=== PATIENT | male | born 1940 | race Caucasian/White ===

== ENCOUNTER → 2016-11-03 | Outpatient (CLI) | payer MEDICARE, OTHER ==
[~2016-11-03] MED LIST: ALPR0.5T3 PO; AMLO10TA2 PO; FISH100020 PO; FURO20TA PO; GLIM2TAB PO; HYDR-3533 PO; LACTCAP8 PO; LISI40TA PO; LOVA40TA PO; MAGN400T2 PO; MAPA500T13 PO; METF500T PO; METO25TA3 PO; NIAC500T5 PO; TAMS0.4C4 PO; VENL75CA44 PO; VITACAP7 PO
[2016-11-03 10:00] LABS: BLOOD, URINE NEG (NEG); GLUCOSE,URINE NEG (NEG); KETONE, URINE NEG (NEG); NITRITE,URINE NEG (NEG); URINE COLOR LIGHT-YELLOW (YELLW/STRAW)
[2016-11-03 10:03] LABS: APTT (PATIENT) 28.5 SEC (24.3-30.1); PROTHROMBIN TIME - PATIENT 10.6 SEC (9.8-11.6)
[2016-11-03 10:05] LABS: COMMENT (UR) CULT NOT INDICATED; CULTURE IF INDICATED CULT NOT INDICATED
[2016-11-03 10:10] LABS: ALKALINE PHOSPHATASE 59 U/L (45-117); TOTAL BILIRUBIN ADULT 0.3 MG/DL (0.2-1.0)
[2016-11-03 10:17] LABS: ALT (GPT) 30 U/L (12-78); ANION GAP 5 MEQ/L (5-15); AST (GOT) 30 U/L (15-37); BICARBONATE 24.6 MEQ/L (21.0-32.0); BLOOD UREA NITROGEN 30 MG/DL (7-18); CHLORIDE 110 MEQ/L (98-107); GLOMERULAR FILTRATION RATE 42 ML/MIN (>89); GLUCOSE,FASTING 124 MG/DL (74-99); SODIUM (NA) 140 MEQ/L (136-145)
[2016-11-03 10:25] LABS: POTASSIUM 5.2 MEQ/L (3.5-5.1)
--- NOTE | 2016-11-03 11:12 | RADRPT ---
EXAM DATE/TIME: 11/03/2016 10:03 [facility] COMPARISON: No previous studies available for comparison. INDICATIONS : Evaluate for pneumonia, pneumothorax or communicable disease. Pre op for back surgery 11-09-16. MEDICAL HISTORY : None. SURGICAL HISTORY : CABG. aortic valve replacement. ENCOUNTER: Initial ACUITY: 1 day PAIN SCORE: 0/10 LOCATION: Bilateral chest FINDINGS: PA and lateral views of the chest demonstrate the lungs to be symmetrically aerated without evidence of mass, infiltrate or effusion. Prosthetic aortic valve. Median sternotomy wires. The cardiomediast inal contours are unremarkable. Osseous structures are intact. CONCLUSION: No acute disease. Cosmo Omalley Jr., MD on November 03, 2016 at 10:59 Board Certified Radiologist. This report was verified electronically.
--- NOTE | 2016-11-04 12:14 | EKG ---
Date Performed: 11/03/2016 Time Performed: 09:01:54 PTAGE: 76 years EKG: Sinus rhythm RIGHT BUNDLE BRANCH BLOCK INFERIOR MYOCARDIAL INFARCTION, OF INDETERMINATE AGE There has been loss o f R wave in III and aVF from the prior tracing. Clinical correlation needed. ABNORMAL ECG PREVIOUS TRACING : 11/12/2011 07.15 DOCTOR: Abdon Brown Interpretating Date/Time 11/04/2016 12:13:59
== END ==
LOC: CPRE 08:28
PROVIDERS: ATTEND Neurological Surgery
DX: Z01.810 Encounter for preprocedural cardiovascular examination (principal); Z01.812 Encounter for preprocedural laboratory examination; M43.10 Spondylolisthesis, site unspecified; I45.10 Unspecified right bundle-branch block
CPT/HCPCS: 36415; 71020; 80053; 81001; 85610; 85730; 93005

== ENCOUNTER 2016-11-09 08:30 | Inpatient (IN) | payer MEDICARE, OTHER ==
[~2016-11-09] VITALS: Ht 165.1 cm; Wt 96.5 kg
[~2016-11-09 08:30] MED LIST changes: -HYDR-3533 PO
[2016-11-09] MEDS ORDERED: LACTATED RINGER'S 1000 ML INJ 1,000 ML IV ONE (10:46)
[2016-11-09] MEDS ORDERED: SODIUM CHLOR 0.9% 250 ML INJ 250 ML IV ONE (10:46)
[2016-11-09] MEDS ORDERED: PROPOFOL 200 MG/20 ML AMP IV ONE (10:46)
[2016-11-09] MEDS ORDERED: ONDANSETRON HCL 4 MG/2 ML VIAL IV PUSH ONE (10:46)
[2016-11-09] MEDS ORDERED: PHENYLEPHRINE HCL 10 MG/ML VIAL IV ONE (10:46)
[2016-11-09] MEDS ORDERED: ePHEDrine/NS 25 MG/5 ML SYR IV ONE (10:46)
[2016-11-09] MEDS ORDERED: PHENYLEPH/NS 1000 MCG/10 ML SYR IV ONE (10:46)
[2016-11-09] MEDS ORDERED: LACTATED RINGER'S 1000 ML IV PRN (11:45)
[2016-11-09] MEDS ORDERED: INSULIN HUMAN REGULAR 1,000 UNITS/10 ML VIAL SQ PRN (11:45)
[2016-11-09] MEDS ORDERED: SODIUM CHLORID 0.9% 500 ML IV PRN (11:45)
[2016-11-09] MEDS ORDERED: CHLORHEXIDINE GLUCONATE 2 % 1 PACK (2 CLOTHS) TOPICAL PRN (11:45)
[2016-11-09] MEDS ORDERED: METOPROLOL TARTRATE 25 MG TAB PO PRN (11:45)
[2016-11-09] MEDS ORDERED: POVIDONE IODINE 5% (ANTISEPSIS KIT) 4 APPLICATIONS EACH NARE PRN (11:45)
[2016-11-09] MEDS ORDERED: VANCOMYCIN HCL 1000 MG ON-CALL/NS 250 ML IV SCH ×2 (12:00)
[2016-11-09 12:20] LABS: AUTOMATED NEUTROPHIL # 3.9 TH/MM3 (1.8-7.7); BASOPHIL % 0.3 % (0.0-2.0); EOSINOPHIL # 0.1 TH/MM3 (0-0.4); EOSINOPHIL % 1.8 % (0.0-4.0); HEMATOCRIT 37.1 % (39.0-51.0); HEMO FLAGS DIFF FINAL; LYMPHOCYTE # 1.5 TH/MM3 (1.0-4.8); MEAN CELL VOLUME 97.9 FL (80.0-100.0); MEAN CORPUSCULAR HEMOGLOBIN 32.2 PG (27.0-34.0); MEAN CORPUSCULAR HGB CONC 32.8 % (32.0-36.0); MONO % 10.8 % (0.0-8.0); NEUT % 63.1 % (16.0-70.0); PLATELET COUNT 183 TH/MM3 (150-450); RED BLOOD COUNT 3.79 MIL/MM3 (4.50-5.90); RED CELL DISTRIBUTION WIDTH 14.8 % (11.6-17.2); WHITE BLOOD COUNT 6.2 TH/MM3 (4.0-11.0)
[2016-11-09] MEDS ORDERED: BUPIVACAINE/EPINEPHRINE 0.5% 50 ML VIAL ONE (13:54)
[2016-11-09] MEDS ORDERED: VANCOMYCIN HCL 1000 MG VIAL ONE (13:54)
[2016-11-09] MEDS ORDERED: HEPARIN SODIUM - SQ 10,000 UNITS/ML VIAL ONE (13:55)
[2016-11-09] MEDS ORDERED: THROMBIN (TOPICAL) 5,000 UNIT VIAL ONE (13:56)
[2016-11-09] MEDS ORDERED: ceFAZolin INJ 1,000 MG VIAL ONE (13:56)
[2016-11-09] MEDS ORDERED: GENTAMICIN SULFATE 80 MG/2 ML VIAL ONE (13:56)
[2016-11-09] MEDS ORDERED: GELFOAM SIZE 100 ONE (13:56)
[2016-11-09] MEDS ORDERED: SODIUM CHLOR 0.9% 250 ML INJ 0 ML ONE (13:57)
[2016-11-09] MEDS ORDERED: ARTIFICIAL TEARS OPTH OINT 3.5 APPLIC/3.5 GM TUBO ONE (14:26)
[2016-11-09] MEDS ORDERED: ACETAMINOPHEN 1000 MG/100 ML 100 ML IV ONE (14:26)
[2016-11-09] MEDS ORDERED: MIDAZOLAM HCL 2 MG/2 ML VIAL ONE (14:26)
[2016-11-09] MEDS ORDERED: ceFAZolin 2 GM PREMIX 50 ML ONE (16:50)
[2016-11-09 18:41] LABS: BLOOD GAS BASE EXCESS -2.5 mmol/L (-2-2); BLOOD GAS HCO3 22 mmol/L (22-26); BLOOD GAS METHEMOGLOBIN 1.4 % (0-2); BLOOD GAS O2 HGB SATURATION 96 % (90-100); BLOOD GAS OXYGEN CONTENT 14.5 Vol % (12.0-20.0); BLOOD GAS PCO2 38 mmHg (38-42); BLOOD GAS PO2 146 mmHg (61-120); BLOOD GAS TOTAL HGB 10.6 G/DL (12.0-16.0); CRITICAL VALUE NO; TEMP CORR TO 98.6
[2016-11-09 18:42] LABS: DRAW SITE OR ABG; FIO2 50 %; STAT YES
[2016-11-09] MEDS ORDERED: ceFAZolin INJ 1,000 MG VIAL IV ONE (19:37)
[2016-11-09] MEDS: NS + KCL 20 MEQ INJ 1,000 ML IV SCH (19:54)
[2016-11-09] MEDS ORDERED: MORPHINE SULFATE 4 MG/ML INJ IV PUSH PRN ×2 (20:00)
[2016-11-09] MEDS ORDERED: ACETAMINOPHEN 325 MG TAB PO PRN (20:00)
[2016-11-09] MEDS ORDERED: diphenhydrAMINE HCL 50 MG/ML VIAL IV PRN (20:00)
[2016-11-09] MEDS ORDERED: SODIUM CHLORIDE 0.9% FLUSH 5 ML FLUSH IVF PRN (20:00)
[2016-11-09] MEDS ORDERED: NALOXONE HCL 0.4 MG/ML AMP IV PRN (20:00)
[2016-11-09] MEDS ORDERED: ceFAZolin 1,000 MG/NS 100 ML IV SCH ×4 (20:00)
--- NOTE | 2016-11-09 20:00 | PD.OP ---
Operative Report Date of Surgery: Nov 09, 2016 Preoperative Diagnosis: L4-5 spondylolisthesis Postoperative Diagnosis: L4-5 spondylolisthesis Procedure: L4-L5 laminectomy, interbody arthrodhesis using PEEK cage and autologous bone graft, L4-L5 instrumental fixation using transpedicular screws and rods, L4-L5 posterolateral fusion using autologous bone graft and demineralized bone matrix. Microsurgical dissection Anesthesia: general Surgeon: Musa Solis [facility] Lead(s): konrad gonzalez Operation and Findings: INDICATIONS FOR THE SURGICAL PROCEDURE Mr Mejia is a 76 year-old male with history of a prior L4-5 laminectomy who presented with intractable mechanical back pain and citlaly evidence of lower extremity radiculopathy. He developed spondylolisthesis. The patient has failed maximum nonsurgical management including multiple modalities of conservative treatment as well as pain management interventions by an interventional pain specialist. A surgical decompression and arthrodhesis were indicated as a last resort. The [id number] details of the procedure, indications, alternatives, risks and potential complications were fully discussed with the patient. The patient fully understood. All the questions were answered. No guarantees were given. The patient voiced requesting the procedure and provided informed consents. The patient was offered the alternative of delaying the procedure and continuing with nonsurgical management. DETAILS OF THE SURGICAL PROCEDURE Prior to the procedure, the surgical incision was marked in the preoperative surgical holding room, and the procedure, risks, and potential complications revisited with the patient. Placement of electrodes for intraoperative neurophysiological monitoring was completed. The patient was taken to the operative room, and following induction of general anesthesia, endotracheal intubation was performed. A Garcia catheter, bilateral DAMASO hose and sequential compression devices were placed and kept throughout the procedure. The patient was positioned prone, over a Doyle table over a bolsters. All pressure in the preoperative surgical holding room points were carefully padded with eggcrate and gel mattress. The eyes were tapped shut after ointment was applied by the anesthesiologist to prevent corneal abrasion. A Blu hugger was placed over the expossed lower body to maintain control of the core body temperature. The electrophysiological team placed the needles and electrodes in their proper location and baseline SSEP's and EMG potentials were registered. The entrance to each pedicles was marked using a C arm. The lumbar region was prepped and draped in the usual sterile fashion. The surgical procedure was performed in several steps as follow: SURGICAL APPROACH Once the patient was positioned, a localizing cross-table lateral x-ray was performed with a C-arm. Two paramedian small incisions were outlined on the skin approximately 3cm from the midline. The skin incisions were made with a # 10 blade. Small bleeders were controlled with the cautery. The dissection was then carried out into deper planes and through the thoracolumbar fascia with a Bovie. The intermuscular septum was identified and the myscles were blunted dissected along the septum. The facets and transverse process of L4 and L5 were exposed and the proper anatomical landmarks were identidied. A microsurgical self-retaining retractor was placed on the incision, and a localizing lateralizing cross-table x-ray was performed with an instrument underneath a lamina of the lumbar spine. INSTRUMENTAL FIXATION At this point in the procedure, placement of bilateral transpedicular screws was necessary for stabilization of the spine. Initially, the entry point for the screw was selected anatomically at the junction of the facet, with the transverse process, and the pars interarticularis at L4 and L5. This was started with a Giamshetti needle followed by the use of a garcia wire. A tap was used to create the threads for the screws. Finally bilateral transpedicular screws were carefully placed bilaterally at L4, and L5 under fluoroscopic visualization. An appropriate purchase was achieved with all screws. The position of each screw was assessed anatomically with an AP, lateral , oblique Xrays. An intraoperative scan view of the spine was then performed using the iso-centric c-arm. Each screw was then assessed electrophysiologically stimulating each screw with a nerve stimulator. SURGICAL DECOMPRESSION There was significant mass effect with compression of the neural structures. In order to relieve neural compression, it was necessary to perform a decompressive laminectomy, with decompression of the spinal canal and bilateral lateral recesses. Note that the scope of such decompression was significantly more extensive than the minimal exposure necessary to perform an interbody fusion, as there was extreme facet arthropathy with near complete collapse of the disk spaces and severe stenosis cause by the hyperthrophic joint facets. At this point of the procedure the operative microscope was draped in the usual sterile fashion and brought to the field. The rest of the surgical procedure was performed using microdissection technique with the exception of the closure. Under the operating microscope, a decompressive laminectomy was carried out at L4-L5 as follow: The laminae, base of the spinous processes and facets were carefully drilled exposing the ligamentum flavum. The facets were abnormal with severe spondylolisthesis and gross mechanical instability. A large disk protusion was compressing the neural structures and exiting nerve roots. A near complete facetectomy was necessary resulting in further mechanical instability. The ligamentum flavum appeared hypertrophic, resulting on mass effect on the dorsal surface of the neural structures. The superior free border of the ligamentum flavum was elevated with a ligament dissector and the ligamentum flavum was removed with a 3 and 4 mm Kerrison forceps. The ligament was very adherent to the dural sac and during the dissection, and extreme care was taken during the dissection. The exiting nerve roots were identified, and a wide foraminotomy was performed with a Kerrison in their trajectory towards the neural foramen. Epidural veins located laterally to the dural sac were coagulated with the bipolar cautery, and then incised using microscissors. Gentle medial retraction of the dural sac allowed me to expose the disc space for the discectomy. Upon completion of the discectomy, an excellent decompression of the neural structures was achieved. Increased motion was noted, which was consistent with mechanical instability. INTERBODY ARTHRODHESIS In order to correct the narrowing of the disk space and maintain distraction of the space, and to achieve a solid interbody fusion, it was necessary the insertion of an interbody device into the disk space. Otherwise, the disk space would collapse, compromising the result of the surgical procedure. At this point of the procedure, the annulus fibrosus of the disk was carefully coagulated with a bipolar cautery and incised using an 11 bladed knife. Then, a microdiscectomy was carried out in a standard fashion using a combination of straight and up-biting pituitary forceps. A reverse angle curette was applied underneath the posterior longitudinal ligament, and used to push the disk fragments into the disk space, so they can be safely removed with a pituitary forceps. Once the discectomy was completed, it was necessary to decorticate the endplates, in order to eliminate the cartilaginous endplate and to expose healthy bone appropriate to perform the interbody fusion. The endplates at L4- L5 were then thoroughly decorticated using increasing size bone selwyn and ring curets, eliminating the cartilaginous fragments from both, the superior and inferior endplates. A disk space distractor was applied to the pedicle screws and gentle distraction was applied. This maneuver was assisted by the use of a disk distractor. Increased motility was noted at the disk, which was consistent with instability due to facet arthropathy. Once a thorough preparation of the disk space was achieved, the disk space was irrigated with antibiotic solution, and the interbody fusion was performed by carefully impacting an expandable PPEK cage filled with autologous iliac crest bone graft. The cage was cartefully expanded. A solid position of the cage with good purchase was achieved. The position of the cage was assessed anatomically with a probe and radiologically with the C-arm. POSTEROLATERAL FUSION The posterolateral fusion is a critical component to the procedure, to prevent future fatigue and failure of the instrumental fixation. Initially, the transverse processes of the vertebral bodies, lateral surface of the facets and the lateral gutters of the spine were carefully cleaned, eliminating all soft tissue and muscle attachments. The area was then irrigated with a large amount of antibiotic solution. Subsequently, the transverse processes, lateral surface of the facets, and lateral gutters of the spine were thoroughly decorticated using the TPS drill with a 5mm cutting dipti, exposing cancellous bone, in preparation for the posterolateral fusion. The incision was again irrigated with antibiotic solution. Then, the posterolateral fusion was then performed by carefully packing the lateral gutters of the spine at L4-L5 with autologous bone combined with demineralized bone matrix. I packed as much bone as possible. COMPLETION OF THE INSTRUMENTATION AND CLOSURE The rods were brought to the field, applied to all the screws, and the screw caps were sequentially applied. Compression was performed between the pedicle screws, and final tightening of the screws was completed using a torque wrench. The incision was again thoroughly irrigated with several liters of antibiotic solution, and hemostasis secured with the bipolar cautery. A Valsalva Maneuver performed by the anesthesiologist failed to show any evidence of cerebrospinal fluid leak or bleeding. A 7 mm Doyle-[place] drain was left in the epidural space and externalized through a separate stab incision. The incision was then closed in planes. 0 Vicryl was used in an interrupted fashion to close the thoracolumbar fascia and the superficial fascia. The subcutaneous tissue was then approximated using 3-0 Vicryl in an interrupted fashion. Special care was taken to avoid space. The skin was then closed with 4-0 Vicryl in a running, subcuticular fashion. Dermabond was applied to the skin. Each plane of closure was irrigated with antibiotic solution. At the end of the procedure the sponge, needle and instrument counts were all correct. Estimated blood loss was 250 cc. No blood transfusion was given. The entire procedure was performed using continuous electrophysiological monitoring of the somatosensorial evoked potentials and EMG. The patient received prophylactic antibiotics. The patient was then extubated and transferred to the recovery room in stable condition. Musa Solis MD Nov 09, 2016 20:00
[2016-11-09] MEDS ORDERED: DO NOT ADM ANY ANTICOAGULANT DRUGS PRN (20:28)
[2016-11-09] MEDS: SODIUM CHLORIDE 0.9% FLUSH 5 ML FLUSH IVF SCH (21:00)
--- NOTE | 2016-11-09 21:27 | RADRPT ---
EXAM DATE/TIME: 11/09/2016 15:25 [facility] COMPARISON: No previous studies available for comparison. INDICATIONS : Lumbar fusion of L4/5. MEDICAL HISTORY : Unobtainable. SURGICAL HISTORY : Unobtainable. ENCOUNTER: Initial ACUITY: 1 day PAIN SCORE: Non-responsive. LOCATION: Lumbar spine. FINDINGS: Two view examination was performed. There is dawit and screw fixation across L4-5. Disc spacer present. Normal alignment. CONCLUSION: 1. Fusion L4-5. Jorge Alberto Flores MD on November 09, 2016 at 21:24 Board Certified Radiologist. This report was verified electronically.
[2016-11-09] MEDS: HYDROmorphone HCL PCA 6 MG/30 ML IV SCH (22:07)
[2016-11-09] MEDS: PCA - TOTAL MG DILAUDID DELIVERED PER SHIFT SCH (22:41)
[2016-11-09 22:54] VITALS: BP 98/51; PULSE 89; RESP 20; TEMP 98.1; O2SAT 91
[2016-11-10] VITALS (9 sets, daily range): BP systolic 99–133; BP diastolic 52–60; PULSE 71–97; RESP 18–20; TEMP 97.3–98.2; O2SAT 91–94
[2016-11-10] MEDS ORDERED: ceFAZolin 2 GM PREMIX 50 ML IV SCH
[2016-11-10] MEDS: PCA - TOTAL MG DILAUDID DELIVERED PER SHIFT SCH ×3 (05:38→22:00)
[2016-11-10 07:28] LABS: AUTOMATED NEUTROPHIL # 10.3 TH/MM3 (1.8-7.7); BASOPHIL % 0.1 % (0.0-2.0); HEMATOCRIT 27.6 % (39.0-51.0); HEMO FLAGS DIFF FINAL; LYMPH % 6.3 % (9.0-44.0); LYMPHOCYTE # 0.7 TH/MM3 (1.0-4.8); MEAN CELL VOLUME 100.6 FL (80.0-100.0); MEAN CORPUSCULAR HEMOGLOBIN 33.2 PG (27.0-34.0); MONO % 6.2 % (0.0-8.0); NEUT % 87.4 % (16.0-70.0); PLATELET COUNT 132 TH/MM3 (150-450); RED BLOOD COUNT 2.75 MIL/MM3 (4.50-5.90); RED CELL DISTRIBUTION WIDTH 14.9 % (11.6-17.2); WHITE BLOOD COUNT 11.7 TH/MM3 (4.0-11.0)
[2016-11-10] MEDS: NS + KCL 20 MEQ INJ 1,000 ML IV SCH ×2 (08:18→15:34)
[2016-11-10] MEDS: SODIUM CHLORIDE 0.9% FLUSH 5 ML FLUSH IVF SCH ×2 (08:26→20:53)
[2016-11-10] MEDS: PANTOPRAZOLE SODIUM 40 MG VIAL IVP SCH (08:26)
[2016-11-10] MEDS: HYDROmorphone HCL PCA 6 MG/30 ML IV SCH (10:40)
[2016-11-10] MEDS: ceFAZolin 2 GM PREMIX 50 ML IV SCH ×2 (10:42→15:35)
[2016-11-10] MEDS: SODIUM CHLOR 0.9% 1000 ML INJ 1,000 ML IV SCH ×2 (11:37→12:00)
--- NOTE | 2016-11-10 13:17 | PD.CONS ---
HPI Service [facility] Consult Requested By Dr. Solis Primary Care Physician Non-Staff Diagnoses: History of Present Illness This is a 76-year-old male with multiple medical problems including history of low back pain status post laminectomy. Patient developed spondylolisthesis, admitted for elective laminectomy. We are consulted from medical management. Presently, patient is postop day 1, no complaints are done mild grogginess from morphine. Otherwise does not have any chest pain, shortness of breath, nausea, vomiting, abdominal pain. Eating well. Review of Systems ROS Limitations: Other (All other pertinent systems were reviewed and are negative.) Past Family Social History Allergies: Coded Allergies: enoxaparin (Unverified Allergy, Severe, "HIT", 11/03/16) heparin (porcine) (Unverified Allergy, Severe, "HIT", 11/03/16) hydrocodone (Unverified Allergy, Unknown, Disoriented, 11/03/16) Past Medical History 1. Coronary artery disease. 2. Hypertension. 3. Renal insufficiency. 4. Diabetes type 2. 5. Hyperlipidemia. 6. Aortic stenosis. 7. Anal cancer Past Surgical History 1. L3-L5 compressive laminectomy for lumbar stenosis. 2. Tonsillectomy. 3. Bilateral cataract surgery. 4. Left knee surgery. 5. Reports of having had prostate surgery as well as anal carcinoma resection though this is not confirmed. Reported Medications Mapap Extra Strength (Acetaminophen) 500 Mg Tab 500 Mg PO Q4-6H PRN B Complex (B-Complex Vitamins) 1 Cap 1 Cap PO DAILY Probiotic (Lactobacillus Acidophilus) 10 Billion Cell Cap 1 Cap PO HS Fish Oil 1000 mg ([place]-3 Fatty Acids) 300 Mg-1,000 Mg Cap 2 Cap PO BID Niacin 500 Mg Tab 500 Mg PO HS Amlodipine (Amlodipine Besylate) 10 Mg Tab 10 Mg PO DAILY Magnesium Oxide 400 Mg Tab 400 Mg PO HS Venlafaxine ER 24 HR (Venlafaxine HCl) 75 Mg Cap 75 Mg PO DAILY Glimepiride 2 Mg Tab 2 Mg PO DAILY Metformin (Metformin HCl) 500 Mg Tab 500 Mg PO BID Metoprolol Tartrate 25 Mg Tab 12.5 Mg PO DAILY Lisinopril 40 Mg Tab 40 Mg PO BID Furosemide 20 Mg Tab 20 Mg PO DAILY Lovastatin 40 Mg Tab 40 Mg PO DAILY Tamsulosin (Tamsulosin HCl) 0.4 Mg Cap 0.4 Mg PO BID Alprazolam 0.5 Mg Tab 0.5 Mg PO HS Family History No history of diabetes in the family Social History The patient lives at home with his . Social alcohol drinker, denies any illicit drug abuse or use. Physical Exam Vital Signs Vital Signs Date Time Temp Pulse Resp B/P (MAP) Pulse Ox O2 Delivery O2 Flow Rate FiO2 11/10/16 12:25 98.2 89 20 133/60 (84) 93 11/10/16 11:10 18 11/10/16 10:40 18 11/10/16 09:35 94 Nasal Cannula 4.00 11/10/16 08:54 97.5 71 20 116/56 (76) 91 11/10/16 05:38 18 11/10/16 05:21 93 Nasal Cannula 4.00 11/10/16 04:00 97.8 71 18 106/55 (72) 91 11/10/16 00:00 97.3 83 18 99/52 (68) 94 11/09/16 22:54 98.1 89 20 98/51 (67) 91 11/09/16 22:41 17 11/09/16 22:07 16 11/09/16 21:30 92 21 99/52 (68) 92 Nasal Cannula 4 11/09/16 21:15 92 16 101/53 (69) 92 Nasal Cannula 4 11/09/16 21:00 91 18 100/52 (68) 93 Nasal Cannula 4 11/09/16 20:45 92 20 98/50 (66) 93 Nasal Cannula 4 11/09/16 20:30 98.3 97 14 98/56 (70) 93 Nasal Cannula 4 Physical Exam Not in distress, well-nourished, looks stated age PERRL, pink conjunctiva without injection, anicteric Supple neck, no masses or thyromegaly, trachea midline Normal rate and regular rhythm, no murmurs gallops or rubs appreciated. Clear to auscultation and symmetric bilaterally, Normal bowel sounds, soft, non-tender, nondistended, no guarding. Extremities without clubbing, cyanosis, or edema. AAO x3, no cranial nerve deficits, moves all 4 extremities, no focal neurologic deficits Laboratory Laboratory Tests Test 11/09/16 18:06 11/10/16 08:18 Blood Gas Puncture Site OR ABG Blood Gas Patient Temperature 98.6 Blood Gas HCO3 22 Blood Gas Base Excess -2.5 Blood Gas Oxygen Saturation 96 Arterial Blood pH 7.38 Arterial Blood Partial Pressure CO2 38 Arterial Blood Partial Pressure O2 146 Arterial Blood Oxygen Content 14.5 Arterial Blood Carboxyhemoglobin 2.0 Arterial Blood Methemoglobin 1.4 Blood Gas Hemoglobin 10.6 Blood Gas Inspired Oxygen 50 White Blood Count 11.7 Red Blood Count 2.75 Hemoglobin 9.1 Hematocrit 27.6 Mean Corpuscular Volume 100.6 Mean Corpuscular Hemoglobin 33.2 Mean Corpuscular Hemoglobin Concent 33.0 Red Cell Distribution Width 14.9 Platelet Count 132 Mean Platelet Volume 7.6 Neutrophils (%) (Auto) 87.4 Lymphocytes (%) (Auto) 6.3 Monocytes (%) (Auto) 6.2 Eosinophils (%) (Auto) 0.0 Basophils (%) (Auto) 0.1 Neutrophils # (Auto) 10.3 Lymphocytes # (Auto) 0.7 Monocytes # (Auto) 0.7 Eosinophils # (Auto) 0.0 Basophils # (Auto) 0.0 CBC Comment DIFF FINAL Differential Comment Blood Urea Nitrogen 32 Creatinine 1.73 Random Glucose 138 Calcium Level 6.4 Sodium Level 142 Potassium Level 8.8 Chloride Level 116 Carbon Dioxide Level 22.3 Anion Gap 4 Estimat Glomerular Filtration Rate 38 Result Diagram: 11/10/1618 11/10/16 0818 Imaging Last Impressions Lumbar Spine X-Ray 11/09/16 0000 Signed Impressions: Service Date/Time: Wednesday, November 09, 2016 15:25 - CONCLUSION: 1. Fusion L4-5. Jorge Alberto Flores MD Assessment and Plan Problem List: (1) Diabetes mellitus ICD Code: E11.9 - Type 2 diabetes mellitus without complications Status: Chronic (2) CAD (coronary artery disease) ICD Code: I25.10 - Atherosclerotic heart disease of [place] coronary artery without angina pectoris Status: Chronic (3) HTN (hypertension) ICD Code: I10 - Essential (primary) hypertension Status: Chronic (4) ARF (acute renal failure) ICD Code: N17.9 - Acute kidney failure, unspecified Status: Acute Assessment and Plan This is a 76-year-old male admitted for elective laminectomy Coronary artery disease, aortic stenosis, hypertension-continue Norvasc, and metoprolol, monitor. Monitor BMP Diabetes mellitus- hold oral hypoglycemic agents, sliding scale insulin for now. Acute renal failure-start IVF, recheck BMP tomorrow. Restart alpha blockers. Hold Lasix and lisinopril. Monitor urine output. Status post laminectomy-pain control per surgery Mild leukocytosis-likely stress-induced, recheck tomorrow. Hyperkalemia-could be a hemolyzed sample, recheck BMP stat, will glucose and insulin. Hypocalcemia-protein corrected calcium pending. DVT prophylaxis: SCDs for now, patient is postoperative. Protonix for GI prophylaxis. Metoprolol Tartrate 25 Mg Tab 12.5 Mg PO DAILY Lisinopril 40 Mg Tab 40 Mg PO BID Furosemide 20 Mg Tab 20 Mg PO DAILY Lovastatin 40 Mg Tab 40 Mg PO DAILY Tamsulosin (Tamsulosin HCl) 0.4 Mg Cap 0.4 Mg PO BID Alprazolam 0.5 Mg Tab 0.5 Mg PO HS Destiny Aragon MD Nov 10, 2016 13:17
--- NOTE | 2016-11-10 13:42 | HHI.NSPN ---
(Conchis Jose) Note Status Status: Progress Note (Conchis Jose) Interval History Interval History Mr. Agee underwent a L4-L5 laminectomy, interbody arthrodesis using PEEK cage and autologous bone graft, L4-L5 instrumental fixation using transpedicular screws and rods, L4-L5 posterolateral fusion using autologous bone graft and demineralized bone matrix, microsurgical dissection on Nov 09, 2016 for L4-5 spondylolisthesis. 11/10: doing well, moderate surgical pain worse with movements. denies chest pain , difficulty breathing. (Conchis Jose) Labs, Micro, & Vital Signs Results Date Time Temp Pulse Resp B/P (MAP) Pulse Ox O2 Delivery O2 Flow Rate FiO2 11/10/16 12:25 98.2 89 20 133/60 (84) 93 11/10/16 11:10 18 11/10/16 10:40 18 11/10/16 09:35 94 Nasal Cannula 4.00 11/10/16 08:54 97.5 71 20 116/56 (76) 91 11/10/16 05:38 18 11/10/16 05:21 93 Nasal Cannula 4.00 11/10/16 04:00 97.8 71 18 106/55 (72) 91 11/10/16 00:00 97.3 83 18 99/52 (68) 94 11/09/16 22:54 98.1 89 20 98/51 (67) 91 11/09/16 22:41 17 11/09/16 22:07 16 11/09/16 21:30 92 21 99/52 (68) 92 Nasal Cannula 4 11/09/16 21:15 92 16 101/53 (69) 92 Nasal Cannula 4 11/09/16 21:00 91 18 100/52 (68) 93 Nasal Cannula 4 11/09/16 20:45 92 20 98/50 (66) 93 Nasal Cannula 4 11/09/16 20:30 98.3 97 14 98/56 (70) 93 Nasal Cannula 4 Constitutional Vital Signs Date Time Temp Pulse Resp B/P (MAP) Pulse Ox O2 Delivery O2 Flow Rate FiO2 11/10/16 12:25 98.2 89 20 133/60 (84) 93 11/10/16 11:10 18 11/10/16 10:40 18 11/10/16 09:35 94 Nasal Cannula 4.00 11/10/16 08:54 97.5 71 20 116/56 (76) 91 11/10/16 05:38 18 11/10/16 05:21 93 Nasal Cannula 4.00 11/10/16 04:00 97.8 71 18 106/55 (72) 91 11/10/16 00:00 97.3 83 18 99/52 (68) 94 11/09/16 22:54 98.1 89 20 98/51 (67) 91 11/09/16 22:41 17 11/09/16 22:07 16 11/09/16 21:30 92 21 99/52 (68) 92 Nasal Cannula 4 11/09/16 21:15 92 16 101/53 (69) 92 Nasal Cannula 4 11/09/16 21:00 91 18 100/52 (68) 93 Nasal Cannula 4 11/09/16 20:45 92 20 98/50 (66) 93 Nasal Cannula 4 11/09/16 20:30 98.3 97 14 98/56 (70) 93 Nasal Cannula 4 (Conchis Jose) Review of Systems Constitutional: DENIES: Fever Respiratory: DENIES: Apneas, Shortness of breath Cardiovascular: DENIES: Chest pain Musculoskeletal: COMPLAINS OF: Back pain Neurologic: DENIES: Headache, Seizures Psychiatric: DENIES: Hallucinations (Conchis Jose) Physical Exam Mr. Agee is alert, awake and oriented to time, place and person. Speech is fluent. Cranial nerve examination: pupils equal, round. Facial motor are normal and symmetrical. Gross hearing appears intact. Sternocleidomastoid and trapezius muscles are symmetrical. Neck is soft and supple Muscle strength is normal in all muscle groups of both upper extremities. Moves major muscle groups of lower extremities well but exam currently limited due to surgical pain. Sensory examination is intact to light touch in both the upper and lower extremities. There is a bilateral plantar flexion response. Heart: NSR (Conchis Jose) Medications Current Medications Current Medications Medications (Trade) Dose Ordered Sig/Ave Route PRN Reason Start Time Stop Time Status Last Admin Dose Admin Lactated Ringer's 1,000 ml @ 30 mls/hr Q24H PRN IV SEE LABEL COMMENTS 11/09/16 11:45 11/12/16 11:44 11/09/16 11:00 Sodium Chloride 500 ml @ 30 mls/hr [id number] PRN IV SEE LABEL COMMENTS 11/09/16 11:45 11/12/16 11:44 Metoprolol Tartrate (Lopressor) 25 mg ON SITE SOIL EVALUATOR PRN PO SEE LABEL COMMENTS 11/09/16 11:45 11/12/16 11:44 Povidone Iodine (Betadine 5% Antisepsis Kit) 1 applic ON SITE SOIL EVALUATOR PRN EACH NARE SEE LABEL COMMENTS 11/09/16 11:45 11/12/16 11:44 11/09/16 11:00 Chlorhexidine Gluconate (Chlorhexidine 2% Cloth) 3 pack ON SITE SOIL EVALUATOR PRN TOPICAL SEE LABEL COMMENTS 11/09/16 11:45 11/12/16 11:44 Insulin Human Regular (NovoLIN R INJ) See Protocol Table ... ON SITE SOIL EVALUATOR PRN SQ SEE PROTOCOL TABLE 11/09/16 11:45 11/12/16 11:44 Vancomycin HCl 1000 mg/Sodium Chloride 250 ml @ 250 mls/hr ON SITE SOIL EVALUATOR IV 11/09/16 12:00 11/12/16 11:59 11/09/16 12:45 Sodium Chloride 1,000 ml @ 30 mls/hr Q24H IV 11/09/16 12:00 11/10/16 12:00 Potassium Chloride/Sodium Chloride 1,000 ml @ 100 mls/hr Q10H IV 11/09/16 19:54 11/10/16 08:18 IV Flush (NS Flush) 2 ml UNSCH PRN IVF FLUSH AFTER USING IV ACCESS 11/09/16 20:00 IV Flush (NS Flush) 2 ml BID IVF 11/09/16 21:00 11/10/16 08:26 Pantoprazole Sodium (Protonix Inj) 40 mg DAILY IVP 11/10/16 09:00 11/10/16 08:26 Morphine Sulfate (Morphine Inj) 2 mg Q2H PRN IV PUSH PAIN SCALE 1 TO 6 11/09/16 20:00 Morphine Sulfate (Morphine Inj) 4 mg Q2H PRN IV PUSH PAIN SCALE 7 TO 10 11/09/16 20:00 Acetaminophen (Tylenol) 650 mg Q4H PRN PO TEMPERATURE > 101.5 F 11/09/16 20:00 Naloxone HCl (Narcan Inj) 0.4 mg UNSCH PRN IV RESPIRATORY RATE LESS THAN 10 11/09/16 20:00 Diphenhydramine HCl (Benadryl Inj) 25 mg Q6H PRN IV ITCHING 11/09/16 20:00 Hydromorphone HCl (Dilaudid IMITATION MARBLE MECHANIC Inj) 6 mg UNSCH IV 11/09/16 20:00 11/10/16 10:40 IMITATION MARBLE MECHANIC Dosage Infused (Pha) 1 Q8HR .XX 11/09/16 22:00 11/10/16 05:38 Miscellaneous Information ALL NURSING DEPARTME... UNSCH PRN .XX SEE LABEL COMMENTS 11/09/16 20:28 11/10/16 20:27 Cefazolin Sodium/ Dextrose 50 ml @ 100 mls/hr BID@1000,1600 IV 11/10/16 10:00 11/10/16 16:29 11/10/16 10:42 (Conchis Jose) Medical Decision Making MDM Remarks 76 y/o male s/p L4-L5 laminectomy, interbody arthrodesis using PEEK cage and autologous bone graft, L4-L5 instrumental fixation using transpedicular screws and rods, L4-L5 posterolateral fusion using autologous bone graft and demineralized bone matrix, microsurgical dissection on Nov 09, 2016 for L4-5 spondylolisthesis (Conchis Jose) Plan Plan Remarks cont IMITATION MARBLE MECHANIC for surgical pain, PT, start mobilization OOB, LSO when out of bed regular diet nonchemical dvt prophylaxis with SCDs and TEDs due to post-op cont ROXY draining, change dressings daily medicine following, appreciate assistance in medical mgt (Conchis Jose) Attending Statement The exam, history, and the medical decision-making described in the above note were completed with the assistance of the mid-level provider. I reviewed and agree with the findings presented. I attest that I had a [id number] encounter with the patient on the same day, and personally performed and documented my assessment and findings in the medical record. (Musa Solis MD) Conchis Jose Nov 10, 2016 13:42 Musa Solis MD Nov 20, 2016 22:05
[2016-11-10] MEDS ORDERED: DEXTROSE 50% IN WATER 50 ML SYRINGE IV PUSH ONE (15:15)
[2016-11-10] MEDS ORDERED: PILL SPLITTER OTHER PRN (15:15)
[2016-11-10] MEDS ORDERED: INSULIN HUMAN REGULAR 1,000 UNITS/10 ML VIAL IV PUSH ONE (16:00)
[2016-11-10 17:44] LABS: BICARBONATE 25.1 MEQ/L (21.0-32.0); POTASSIUM 6.4 MEQ/L (3.5-5.1)
[2016-11-10 17:56] LABS: CALCIUM-PROTEIN CORRECTED 7.5 MG/DL (8.5-10.1)
[2016-11-10] MEDS: TAMSULOSIN HCL 0.4 MG CAP PO SCH (20:53)
[2016-11-10] MEDS: LACTOBACILLUS ACIDOPHILUS TAB PO SCH (20:53)
[2016-11-10] MEDS: ALPRAZolam 0.5 MG TAB PO SCH (20:53)
[2016-11-11] VITALS (7 sets, daily range): BP systolic 105–130; BP diastolic 53–86; PULSE 67–111; RESP 18–20; TEMP 98.4–100.5; O2SAT 90–96
[2016-11-11] MEDS ORDERED: FUROSEMIDE 40 MG/4 ML VIAL IV PUSH ONE (01:30)
[2016-11-11] MEDS ORDERED: SODIUM POLYSTYRENE SULFONATE SUSP 15 GM/60 ML CUP PO ONE (01:30)
--- NOTE | 2016-11-11 01:50 | RADRPT ---
EXAM DATE/TIME: 11/11/2016 01:15 [facility] COMPARISON: CHEST PA & LAT, November 03, 2016, 10:03. INDICATIONS : Shortness of breath MEDICAL HISTORY : None. SURGICAL HISTORY : CABG. aortic valve replacement. ENCOUNTER: Subsequent ACUITY: 2 days PAIN SCORE: 7/10 LOCATION: Bilateral chest FINDINGS: Stable median sternotomy wires in place. Cardiac silhouette is mildly enlarged with slight indistinct central pulmonary vessels. Minimal diffuse interstitial prominence. Remainder of the exam is unchang ed. CONCLUSION: 1. Mild cardiomegaly with subtle positive fluid balance. Beto Malloy MD on November 11, 2016 at 1:47 Board Certified Radiologist. This report was verified electronically.
[2016-11-11] MEDS: HYDROmorphone HCL PCA 6 MG/30 ML IV SCH (02:09)
[2016-11-11 02:36] LABS: BICARBONATE 24.4 MEQ/L (21.0-32.0); POTASSIUM 5.5 MEQ/L (3.5-5.1)
[2016-11-11 02:51] LABS: CALCIUM-PROTEIN CORRECTED 7.7 MG/DL (8.5-10.1)
[2016-11-11] MEDS: PCA - TOTAL MG DILAUDID DELIVERED PER SHIFT SCH ×3 (06:00→22:00)
[2016-11-11] MEDS: SODIUM CHLORIDE 0.9% FLUSH 5 ML FLUSH IVF SCH ×2 (09:00→21:01)
[2016-11-11] MEDS ORDERED: oxyCODONE/ACETAMINOPHEN 10 MG/325 MG TAB PO PRN (09:15)
[2016-11-11] MEDS: VENLAFAXINE HCL XR 75 MG CAP PO SCH (09:39)
[2016-11-11] MEDS: METOPROLOL TARTRATE 25 MG TAB PO SCH (09:39)
[2016-11-11] MEDS: PRAVASTATIN SOD 40 MG TAB PO SCH (09:39)
[2016-11-11] MEDS: PANTOPRAZOLE SODIUM 40 MG VIAL IVP SCH (09:40)
[2016-11-11] MEDS: TAMSULOSIN HCL 0.4 MG CAP PO SCH ×2 (09:40→20:49)
--- NOTE | 2016-11-11 10:58 | HHI.NSPN ---
(Conchis Jose) Note Status Status: Progress Note (Conchis Jose) Interval History Interval History Mr. Agee underwent a L4-L5 laminectomy, interbody arthrodesis using PEEK cage and autologous bone graft, L4-L5 instrumental fixation using transpedicular screws and rods, L4-L5 posterolateral fusion using autologous bone graft and demineralized bone matrix, microsurgical dissection on Nov 09, 2016 for L4-5 spondylolisthesis. 11/10: doing well, moderate surgical pain worse with movements. denies chest pain , difficulty breathing. 11/11: mildly confused but oriented x 3. desated when ambulating this am, improved when sitting now on oxygen. currently denies chest pain, difficulty breathing, leg pain. reports of persistent surgical back pain. dw , pt becomes confused with narcotics. (Conchis Jose) Labs, Micro, & Vital Signs Results Date Time Temp Pulse Resp B/P (MAP) Pulse Ox O2 Delivery O2 Flow Rate FiO2 11/11/16 08:43 98.9 101 20 130/86 (101) 93 11/11/16 06:00 17 11/11/16 05:50 Simple Mask 4.00 11/11/16 04:00 98.4 67 20 115/53 (73) 94 11/11/16 02:09 18 11/11/16 00:00 99.9 104 18 105/58 (74) 91 11/10/16 22:00 18 11/10/16 20:00 98.1 97 18 119/53 (75) 94 11/10/16 18:11 93 Nasal Cannula 2.00 11/10/16 16:09 97.8 85 20 124/58 (80) 93 11/10/16 14:00 16 11/10/16 12:25 98.2 89 20 133/60 (84) 93 11/10/16 11:10 18 Constitutional Vital Signs Date Time Temp Pulse Resp B/P (MAP) Pulse Ox O2 Delivery O2 Flow Rate FiO2 11/11/16 08:43 98.9 101 20 130/86 (101) 93 11/11/16 06:00 17 11/11/16 05:50 Simple Mask 4.00 11/11/16 04:00 98.4 67 20 115/53 (73) 94 11/11/16 02:09 18 11/11/16 00:00 99.9 104 18 105/58 (74) 91 11/10/16 22:00 18 11/10/16 20:00 98.1 97 18 119/53 (75) 94 11/10/16 18:11 93 Nasal Cannula 2.00 11/10/16 16:09 97.8 85 20 124/58 (80) 93 11/10/16 14:00 16 11/10/16 12:25 98.2 89 20 133/60 (84) 93 11/10/16 11:10 18 (Conchis Jose) Review of Systems Constitutional: DENIES: Fever, Chills Respiratory: DENIES: Apneas, Cough, Wheezing Cardiovascular: DENIES: Chest pain, Syncope, Lower Extremity Edema Gastrointestinal: DENIES: Nausea, Vomiting Neurologic: DENIES: Headache, Localized weakness Psychiatric: COMPLAINS OF: Confusion (mild ), DENIES: Hallucinations (Conchis Jose) Physical Exam Mr. Agee is alert and oriented to time, place and person. Speech is fluent. Sitting up in chair, appears mildly confused asking for his , but in no apparent distress. Wound clean and dry. ROXY drain with minimal drainage. Cranial nerve examination: pupils equal, round. Facial motor are normal and symmetrical. Sternocleidomastoid and trapezius muscles are symmetrical. Neck is soft and supple Muscle strength is normal in all muscle groups of both upper extremities. Moves major muscle groups of lower extremities well but exam currently limited due to surgical pain. No lower extremity edema of calf tenderness Sensory examination is intact to light touch in both the upper and lower extremities. There is a bilateral plantar flexion response. Heart: NSR Respiratory: clear to auscultate b/l, no labored. on nasal cannula (Conchis Jose) Medications Current Medications Current Medications Medications (Trade) Dose Ordered Sig/Ave Route PRN Reason Start Time Stop Time Status Last Admin Dose Admin Metoprolol Tartrate (Lopressor) 25 mg MECHANICAL SUPERVISOR PRN PO SEE LABEL COMMENTS 11/09/16 11:45 11/12/16 11:44 Povidone Iodine (Betadine 5% Antisepsis Kit) 1 applic MECHANICAL SUPERVISOR PRN EACH NARE SEE LABEL COMMENTS 11/09/16 11:45 11/12/16 11:44 11/09/16 11:00 Chlorhexidine Gluconate (Chlorhexidine 2% Cloth) 3 pack MECHANICAL SUPERVISOR PRN TOPICAL SEE LABEL COMMENTS 11/09/16 11:45 11/12/16 11:44 Insulin Human Regular (NovoLIN R INJ) See Protocol Table ... MECHANICAL SUPERVISOR PRN SQ SEE PROTOCOL TABLE 11/09/16 11:45 11/12/16 11:44 Vancomycin HCl 1000 mg/Sodium Chloride 250 ml @ 250 mls/hr MECHANICAL SUPERVISOR IV 11/09/16 12:00 11/12/16 11:59 11/09/16 12:45 IV Flush (NS Flush) 2 ml UNSCH PRN IVF FLUSH AFTER USING IV ACCESS 11/09/16 20:00 IV Flush (NS Flush) 2 ml BID IVF 11/09/16 21:00 11/11/16 09:00 Morphine Sulfate (Morphine Inj) 2 mg Q2H PRN IV PUSH breakthrough pain 11/09/16 20:00 Acetaminophen (Tylenol) 650 mg Q4H PRN PO TEMPERATURE > 101.5 F 11/09/16 20:00 Naloxone HCl (Narcan Inj) 0.4 mg UNSCH PRN IV RESPIRATORY RATE LESS THAN 10 11/09/16 20:00 Diphenhydramine HCl (Benadryl Inj) 25 mg Q6H PRN IV ITCHING 11/09/16 20:00 WIPER BLENDER Dosage Infused (Pha) 1 Q8HR .XX 11/09/16 22:00 11/11/16 06:00 Alprazolam (Xanax) 0.5 mg HS PO 11/10/16 21:00 11/10/16 20:53 Amlodipine Besylate (Norvasc) 10 mg DAILY PO 11/11/16 09:00 11/11/16 09:39 Lactobacillus Acidophilus (Lactinex) 1 tab HS PO 11/10/16 21:00 11/10/16 20:53 Pravastatin Sodium (Pravachol) 40 mg DAILY PO 11/11/16 09:00 11/11/16 09:39 Metoprolol Tartrate (Lopressor) 12.5 mg DAILY PO 11/11/16 09:00 11/11/16 09:39 Tamsulosin HCl (Flomax) 0.4 mg BID PO 11/10/16 21:00 11/11/16 09:40 Venlafaxine HCl (Effexor Xr) 75 mg DAILY PO 11/11/16 09:00 11/11/16 09:39 Miscellaneous (Pill Splitter) 1 ea UNSCH PRN OTHER SEE LABEL COMMENTS 11/10/16 15:15 Oxycodone/ Acetaminophen (Percocet 10-325 Mg) 1 tab Q4H PRN PO PAIN SCALE 1 TO 5 11/11/16 09:15 Oxycodone/ Acetaminophen (Percocet 10-325 Mg) 2 tab Q4H PRN PO PAIN SCALE 6 TO 10 11/11/16 09:15 Pantoprazole Sodium (Protonix) 40 mg DAILY PO 11/12/16 09:00 (Conchis Jose) Medical Decision Making MDM Remarks 76 y/o male s/p L4-L5 laminectomy, interbody arthrodesis using PEEK cage and autologous bone graft, L4-L5 instrumental fixation using transpedicular screws and rods, L4-L5 posterolateral fusion using autologous bone graft and demineralized bone matrix, microsurgical dissection on Nov 09, 2016 for L4-5 spondylolisthesis (Conchis Jose) Plan Plan Remarks dc dilauded WIPER BLENDER, start oral pain medications, IV morphine prn breakthrough pain, CXR reviewed, continue Incentive Spirometry, oxygen nasal cannula, continuous pulse ox serial neuro checks, cont PT, mobilization OOB, LSO when out of bed cont diet nonchemical dvt prophylaxis with SCDs and TEDs due to post-op cont ROXY draining, today, dc tomorrow, dc reyez catheter change dressings daily medicine following, appreciate assistance in medical mgt discussed with over the phone, dw nursing (Conchis Jose) Attending Statement The exam, history, and the medical decision-making described in the above note were completed with the assistance of the mid-level provider. I reviewed and agree with the findings presented. I attest that I had a [id number] encounter with the patient on the same day, and personally performed and documented my assessment and findings in the medical record. (Musa Solis MD) Conchis Jose Nov 11, 2016 10:58 Musa Solis MD Nov 21, 2016 11:05
[2016-11-11] MEDS: oxyCODONE/ACETAMINOPHEN 10 MG/325 MG TAB PO PRN (11:40)
--- NOTE | 2016-11-11 11:47 | EKG ---
Date Performed: 11/10/2016 Time Performed: 15:58:49 PTAGE: 76 years EKG: Sinus rhythm WITH FIRST DEGREE AV BLOCK LEFT AXIS DEVIATION RIGHT BUNDLE BRANCH BLOCK ABNORMAL ECG PREVIOUS TRACING : 11/03/2016 09.01 No significant change from previous tracing noted. DOCTOR: Stewart Gallegos Interpretating Date/Time 11/11/2016 11:46:32
[2016-11-11 11:51] LABS: POTASSIUM 5.9 MEQ/L (3.5-5.1)
--- NOTE | 2016-11-11 12:53 | HHI.PR ---
Objective Result Diagram: 11/10/16 1410 11/11/16 0156 Objective Remarks A/P Problem List: (1) Diabetes mellitus ICD Code: E11.9 - Type 2 diabetes mellitus without complications Status: Chronic (2) CAD (coronary artery disease) ICD Code: I25.10 - Atherosclerotic heart disease of [place] coronary artery without angina pectoris Status: Chronic (3) HTN (hypertension) ICD Code: I10 - Essential (primary) hypertension Status: Chronic (4) ARF (acute renal failure) ICD Code: N17.9 - Acute kidney failure, unspecified Status: Acute Georgina Lucas Nov 11, 2016 12:53
[2016-11-11] MEDS ORDERED: INSULIN HUMAN REGULAR 1,000 UNITS/10 ML VIAL IV PUSH ONE (16:15)
[2016-11-11] MEDS ORDERED: DEXTROSE 50% IN WATER 50 ML VIAL(D50) IV PUSH ONE (16:15)
--- NOTE | 2016-11-11 17:01 | HHI.PR ---
Subjective Remarks Written by Georgina Lucas, acting as scribe for Dr. Wolfe on 11/11/16 at 16:57. Follow up on patient with CAD, DM, ARF, s/p laminectomy and fusion with instrumentation. Patient seen and examined today. Dilaudid TOOL DESIGN ENGINEER discontinued by primary team. Now on oral pain medications. Patient c/o low back pain. Denies any other complaints. Denies any chest pain or shortness of breath. Denies any N/V or abdominal pain. Patient reports h/o CKD followed by Dr. Banks as outpatient and ppr kidneys are stable. (Georgina Lucas) Objective Vital Signs Date Time Temp Pulse Resp B/P (MAP) Pulse Ox O2 Delivery O2 Flow Rate FiO2 11/11/16 11:30 100.5 98 20 109/57 (74) 90 11/11/16 11:24 96 Nasal Cannula 2.00 11/11/16 08:43 98.9 101 20 130/86 (101) 93 11/11/16 06:00 17 11/11/16 05:50 Simple Mask 4.00 11/11/16 04:00 98.4 67 20 115/53 (73) 94 11/11/16 02:09 18 11/11/16 00:00 99.9 104 18 105/58 (74) 91 11/10/16 22:00 18 11/10/16 20:00 98.1 97 18 119/53 (75) 94 11/10/16 18:11 93 Nasal Cannula 2.00 I/O 11/10/16 11/10/16 11/10/16 11/11/16 11/11/16 11/11/16 06:59 14:59 22:59 06:59 14:59 22:59 Intake Total 814 ml 240 ml 1000 ml Output Total 160 ml 8 ml Balance 654 ml 240 ml 992 ml Intake Oral 240 ml IV Total 814 ml 1000 ml Output Urine Total 100 ml Drainage Total 60 ml 8 ml # Voids 3 # Bowel Movements 1 1 (Georgina Lucas) Result Diagram: 11/10/16 1410 11/11/16 0156 Imaging Last Impressions Chest X-Ray 11/11/16 0000 Signed Impressions: Service Date/Time: Friday, November 11, 2016 01:15 - CONCLUSION: 1. Mild cardiomegaly with subtle positive fluid balance. Beto Malloy MD Lumbar Spine X-Ray 11/09/16 0000 Signed Impressions: Service Date/Time: Wednesday, November 09, 2016 15:25 - CONCLUSION: 1. Fusion L4-5. Jorge Alberto Flores MD Procedures s/p 11/09/16 L4-L5 laminectomy, interbody arthrodhesis using PEEK cage and autologous bone graft, L4-L5 instrumental fixation using transpedicular screws and rods, L4-L5 posterolateral fusion using autologous bone graft and demineralized bone matrix. Microsurgical dissection Objective Remarks GENERAL: Well-nourished, well-developed patient in NAD. Sitting up in bedside recliner. Awake and alert. SKIN: Warm and dry. No rash. HEAD: Normocephalic. Atraumatic. EYES: EOMI. No scleral icterus. No injection or drainage. ENT: No nasal bleeding or discharge. Mucous membranes pink and moist. NECK: Supple. Trachea midline. CARDIOVASCULAR: Regular rate and rhythm. S1, S2 noted. (+)4/6 systolic murmur. RESPIRATORY: No accessory muscle use. Clear to auscultation but poor effort. Breath sounds equal bilaterally. GASTROINTESTINAL: Abdomen soft, non-tender, nondistended. Normoactive bowel sounds x4. MUSCULOSKELETAL: No obvious deformities. Extremities without clubbing, cyanosis. Wearing lumbosacral support. Mild edema noted in BLE. NEUROLOGICAL: Awake and alert. Moves all extremities spontaneously. Motor and sensory grossly intact. Normal speech. Medications and IVs Current Medications Medications (Trade) Dose Ordered Sig/Ave Route Start Time Stop Time Status Last Admin (Lopressor) 25 mg CEMENT DESPATCH OPERATOR PRN PO 11/09/16 11:45 11/12/16 11:44 (Betadine 5% Antisepsis Kit) 1 applic CEMENT DESPATCH OPERATOR PRN EACH NARE 11/09/16 11:45 11/12/16 11:44 11/09/16 11:00 (Chlorhexidine 2% Cloth) 3 pack CEMENT DESPATCH OPERATOR PRN TOPICAL 11/09/16 11:45 11/12/16 11:44 (NovoLIN R INJ) See Protocol Table ... CEMENT DESPATCH OPERATOR PRN SQ 11/09/16 11:45 11/12/16 11:44 Vancomycin HCl 1000 mg/Sodium Chloride 250 ml @ 250 mls/hr CEMENT DESPATCH OPERATOR IV 11/09/16 12:00 11/12/16 11:59 11/09/16 12:45 (NS Flush) 2 ml UNSCH PRN IVF 11/09/16 20:00 (NS Flush) 2 ml BID IVF 11/09/16 21:00 11/11/16 09:00 (Morphine Inj) 2 mg Q2H PRN IV PUSH 11/09/16 20:00 (Tylenol) 650 mg Q4H PRN PO 11/09/16 20:00 (Narcan Inj) 0.4 mg UNSCH PRN IV 11/09/16 20:00 (Benadryl Inj) 25 mg Q6H PRN IV 11/09/16 20:00 TOOL DESIGN ENGINEER Dosage Infused (Pha) 1 Q8HR .XX 11/09/16 22:00 11/11/16 06:00 (Xanax) 0.5 mg HS PO 11/10/16 21:00 11/10/16 20:53 (Norvasc) 10 mg DAILY PO 11/11/16 09:00 11/11/16 09:39 (Lactinex) 1 tab HS PO 11/10/16 21:00 11/10/16 20:53 (Pravachol) 40 mg DAILY PO 11/11/16 09:00 11/11/16 09:39 (Lopressor) 12.5 mg DAILY PO 11/11/16 09:00 11/11/16 09:39 (Flomax) 0.4 mg BID PO 11/10/16 21:00 11/11/16 09:40 (Effexor Xr) 75 mg DAILY PO 11/11/16 09:00 11/11/16 09:39 (Pill Splitter) 1 ea UNSCH PRN OTHER 11/10/16 15:15 (Percocet 10-325 Mg) 1 tab Q4H PRN PO 11/11/16 09:15 11/11/16 11:40 (Percocet 10-325 Mg) 2 tab Q4H PRN PO 11/11/16 09:15 (Protonix) 40 mg DAILY PO 11/12/16 09:00 (Georgina Lucas) A/P Assessment and Plan 76yo male with CAD, HTN, DM, HLD, aortic stenosis and anal cancer s/p elective L4-L5 laminectomy, interbody arthrodesis using PEEK cage and autologous bone graft, L4-L5 instrumental fixation using transpedicular screws and rods, L4-L5 posterolateral fusion using autologous bone graft and demineralized bone matrix. Microsurgical dissection. DDD lumbar spine s/p elective L4-L5 laminectomy, interbody arthrodesis using PEEK cage and autologous bone graft, L4-L5 instrumental fixation using transpedicular screws and rods, L4-L5 posterolateral fusion using autologous bone graft and demineralized bone matrix. Microsurgical dissection. - Management per primary team - TOOL DESIGN ENGINEER Dilaudid discontinued 2/2 confusion. Now on oral pain medications. - Continue with PT - encouraged bedside IS use hourly CAD Aortic stenosis HTN - Continue on Norvasc and Metoprolol - if BNP is elevated, will repeat echocardiogram - continue to monitor Suspect ARF with stage 3 CKD - improving. Unknown baseline. - cr 1.61 on 11/03, no lab values in system since 2011 - Lasix and Lisinopril on hold - patient follows Dr. Banks tire mold engraver as outpatient and told his kidneys are stable - strict I&Os - Renal US ordered - obtain protein creatinine ratio. random urine sodium and creatinine ordered - urine eosinophils - will consider nephrology consult if kidney function worsens - avoid nephrotoxic agents - am labs to monitor trend Leukocytosis - mild - Tmax 100.5 - CXR personally reviewed shows mild cardiomegaly with subtle positive fluid balance. Given Lasix 40mg x 1 dose by alteration tailor apprentice. BNP ordered. Will resume Lasix if BNP elevated. - UA ordered - today's lab pending - reyez to be discontinued as ordered by primary team Anemia - likely postoperative anemia of acute blood loss - no e/o active bleeding - am labs to monitor trend DM - home medications Metformin and Glimepiride on hold - blood sugars 149 this am - continue with accuchecks and ISS - diabetic diet Hyperkalemia - potassium trending down, 6.4 --> 5.5 - given dose of Kayexalate by alteration tailor apprentice. Repeat potassium pending. - order insulin and glucose now - ACEI on hold - am labs to monitor trend Hypocalcemia - protein corrected calcium 7.7 - obtain PTH and Vit D level - am labs to monitor DVT prophylaxis - Bilateral SCDs, patient is postoperative GI prophylaxis - Protonix Discussed with patient (Georgina Lucas) Assessment and Plan This note was transcribed by scribe [Georgina Lucas]. I, Dr. Mary Wolfe personally performed the history, physical exam, and medical decision making; and confirmed the accuracy of the information in the transcribed note. Authenticated by Dr. Mary Wolfe on 11/11/16 at 17:07. (Mary Wolfe MD) Georgina Lucas Nov 11, 2016 17:01 Mary Wolfe MD Nov 11, 2016 17:08
[2016-11-11] MEDS ORDERED: DEXTROSE 50% IN WATER 50 ML SYRINGE IV PUSH ONE (19:30)
--- NOTE | 2016-11-11 19:36 | RADRPT ---
EXAM DATE/TIME: 11/11/2016 18:22 [facility] COMPARISON: No previous studies available for comparison. INDICATIONS : Increased BUN/Creatinine. MEDICAL HISTORY : Hypertension. Carcinoma, prostate. Hypercholesterolemia. Optic neuropathy. Hearing loss. Numbness. Co nfusion. Arthritis. BPH. Diabetes. Radiation therapy. Lumbar stenosis. IBS. SURGICAL HISTORY : Tonsillectomy. CABG. Aortic valve replacement. Left knee surgery. Back surgery. Bilateral cataract removal. Left lens replacement. ENCOUNTER: Initial ACUITY: 1 day PAIN SCORE: 4/10 LOCATION: Bilateral flank MEASUREMENTS: RIGHT KIDNEY: 13.6 x 5.8 x 7.0 cm LEFT KIDNEY: 12.2 x 5.3 x 5.6 cm FINDINGS: RIGHT KIDNEY: Renal cortex is normal in thickness and echotexture. No hydronephrosis, stone, or mass. LEFT KIDNEY: Renal cortex is normal in thickness and echotexture. No hydronephrosis, stone, or mass. BLADDER: Within normal limits given the degree of distension. CONCLUSION: Normal examination. Jorge Alberto Flores MD on November 11, 2016 at 19:34 Board Certified Radiologist. This report was verified electronically.
[2016-11-11] MEDS: LACTOBACILLUS ACIDOPHILUS TAB PO SCH (20:50)
[2016-11-11] MEDS: ALPRAZolam 0.5 MG TAB PO SCH (20:50)
[2016-11-11 22:37] LABS: AUTOMATED NEUTROPHIL # 9.3 TH/MM3 (1.8-7.7); BASOPHIL # 0.1 TH/MM3 (0-0.2); BASOPHIL % 0.4 % (0.0-2.0); EOSINOPHIL % 0.3 % (0.0-4.0); HEMATOCRIT 28.7 % (39.0-51.0); HEMO FLAGS DIFF FINAL; LYMPH % 12.1 % (9.0-44.0); LYMPHOCYTE # 1.5 TH/MM3 (1.0-4.8); MEAN CELL VOLUME 99.5 FL (80.0-100.0); MEAN CORPUSCULAR HEMOGLOBIN 31.8 PG (27.0-34.0); MEAN CORPUSCULAR HGB CONC 31.9 % (32.0-36.0); MONO % 12.2 % (0.0-8.0); PLATELET COUNT 146 TH/MM3 (150-450); RED BLOOD COUNT 2.89 MIL/MM3 (4.50-5.90); RED CELL DISTRIBUTION WIDTH 14.8 % (11.6-17.2); WHITE BLOOD COUNT 12.4 TH/MM3 (4.0-11.0)
[2016-11-11 23:10] LABS: BICARBONATE 28.4 MEQ/L (21.0-32.0); POTASSIUM 4.6 MEQ/L (3.5-5.1)
[2016-11-12] VITALS (10 sets, daily range): BP systolic 108–152; BP diastolic 54–76; PULSE 67–105; RESP 17–20; TEMP 97.4–98.8; O2SAT 92–97
[2016-11-12] MEDS: PCA - TOTAL MG DILAUDID DELIVERED PER SHIFT SCH ×4 (06:00→21:16)
[2016-11-12] MEDS: SODIUM CHLORIDE 0.9% FLUSH 5 ML FLUSH IVF SCH ×2 (09:00→21:00)
[2016-11-12] MEDS: VENLAFAXINE HCL XR 75 MG CAP PO SCH (09:48)
[2016-11-12] MEDS: PRAVASTATIN SOD 40 MG TAB PO SCH (09:48)
[2016-11-12] MEDS: PANTOPRAZOLE SOD 40 MG DELAYED RELEASE TAB PO SCH (09:48)
[2016-11-12] MEDS: TAMSULOSIN HCL 0.4 MG CAP PO SCH ×2 (09:48→22:08)
[2016-11-12] MEDS: METOPROLOL TARTRATE 25 MG TAB PO SCH (09:48)
[2016-11-12 11:19] LABS: AUTOMATED NEUTROPHIL # 7.7 TH/MM3 (1.8-7.7); BASOPHIL % 0.3 % (0.0-2.0); EOSINOPHIL # 0.1 TH/MM3 (0-0.4); EOSINOPHIL % 0.7 % (0.0-4.0); HEMATOCRIT 27.1 % (39.0-51.0); HEMO FLAGS DIFF FINAL; LYMPH % 11.9 % (9.0-44.0); LYMPHOCYTE # 1.2 TH/MM3 (1.0-4.8); MEAN CELL VOLUME 99.2 FL (80.0-100.0); MEAN CORPUSCULAR HEMOGLOBIN 32.7 PG (27.0-34.0); MEAN CORPUSCULAR HGB CONC 32.9 % (32.0-36.0); MONO % 10.7 % (0.0-8.0); NEUT % 76.4 % (16.0-70.0); PLATELET COUNT 136 TH/MM3 (150-450); RED BLOOD COUNT 2.73 MIL/MM3 (4.50-5.90); RED CELL DISTRIBUTION WIDTH 14.5 % (11.6-17.2)
[2016-11-12 11:46] LABS: BICARBONATE 28.3 MEQ/L (21.0-32.0); POTASSIUM 3.9 MEQ/L (3.5-5.1)
--- NOTE | 2016-11-12 16:03 | HHI.PR ---
Subjective Remarks Written by Brigitte Ward, acting as scribe for Dr. Wolfe on 11/12/16 at 15:49. Follow up on patient with CAD, DM, ARF, s/p laminectomy and fusion with instrumentation. Patient seen and examined today. at bedside. Pain well controlled. States he has been urinating well. Continued on 4L NC sats 97%. Spoke to bedside RN who states that he attempted to wean O2 down to 3L NC but his sats dropped to 88%. Positive BM. Denies any fever or chills. On PO pain medication, ENGINEER AND GEOLOGIST dc'd. Objective Vitals Vital Signs Date Time Temp Pulse Resp B/P (MAP) Pulse Ox O2 Delivery O2 Flow Rate FiO2 11/12/16 13:00 92 Nasal Cannula 3.00 11/12/16 12:00 97.9 88 17 108/58 (75) 92 11/12/16 08:00 97.7 94 17 152/70 (97) 95 11/12/16 04:34 94 Nasal Cannula 4.00 11/12/16 04:00 98.8 98 18 110/76 (87) 94 11/12/16 03:45 96 Nasal Cannula 6.00 11/12/16 01:14 94 Simple Mask 7.00 11/12/16 00:00 98.4 105 18 124/54 (77) 93 11/11/16 21:00 95 Simple Mask 7.00 11/11/16 20:00 100.1 111 18 107/73 (84) 93 11/11/16 18:00 96 Nasal Cannula 2.00 I/O 11/11/16 11/11/16 11/11/16 11/12/16 11/12/16 11/12/16 06:59 14:59 22:59 06:59 14:59 22:59 Intake Total 1000 ml Output Total 8 ml 1470 ml 20 ml Balance 992 ml -1470 ml -20 ml IV Total 1000 ml Output Urine Total 1450 ml Drainage Total 8 ml 20 ml 20 ml # Voids 3 2 # Bowel Movements 1 1 Result Diagram: 11/12/16 1106 11/12/16 1100 Imaging Last Impressions Renal Ultrasound 11/11/16 0000 Signed Impressions: Service Date/Time: Friday, November 11, 2016 18:22 - CONCLUSION: Normal examination. Jorge Alberto Flores MD Chest X-Ray 11/11/16 0000 Signed Impressions: Service Date/Time: Friday, November 11, 2016 01:15 - CONCLUSION: 1. Mild cardiomegaly with subtle positive fluid balance. Beto Malloy MD Lumbar Spine X-Ray 11/09/16 0000 Signed Impressions: Service Date/Time: Wednesday, November 09, 2016 15:25 - CONCLUSION: 1. Fusion L4-5. Jorge Alberto Flores MD Objective Remarks GENERAL: Well-nourished, well-developed male patient in NAD. Lying in bed comfortably. Awake and alert. On 4 LNC. SKIN: Warm and dry. No rash. HEAD: Normocephalic. Atraumatic. EYES: EOMI. No scleral icterus. No injection or drainage. ENT: No nasal bleeding or discharge. Mucous membranes pink and moist. NECK: Supple. Trachea midline. CARDIOVASCULAR: Regular rate and rhythm. S1, S2 noted. (+)4/6 systolic murmur. RESPIRATORY: No accessory muscle use. Clear to auscultation but poor effort. Breath sounds equal bilaterally. GASTROINTESTINAL: Abdomen soft, non-tender, nondistended. Normoactive bowel sounds x4. MUSCULOSKELETAL: No obvious deformities. Extremities without clubbing, cyanosis. Mild edema noted in BLE. NEUROLOGICAL: Awake and alert. Moves all extremities spontaneously. Motor and sensory grossly intact. Normal speech. Procedures s/p 11/09/16 L4-L5 laminectomy, interbody arthrodhesis using PEEK cage and autologous bone graft, L4-L5 instrumental fixation using transpedicular screws and rods, L4-L5 posterolateral fusion using autologous bone graft and demineralized bone matrix. Microsurgical dissection A/P Problem List: (1) Diabetes mellitus ICD Code: E11.9 - Type 2 diabetes mellitus without complications Status: Chronic (2) CAD (coronary artery disease) ICD Code: I25.10 - Atherosclerotic heart disease of [place] coronary artery without angina pectoris Status: Chronic (3) HTN (hypertension) ICD Code: I10 - Essential (primary) hypertension Status: Chronic (4) ARF (acute renal failure) ICD Code: N17.9 - Acute kidney failure, unspecified Status: Acute Assessment and Plan 76yo male with CAD, HTN, DM, HLD, aortic stenosis and anal cancer s/p elective L4-L5 laminectomy, interbody arthrodesis using PEEK cage and autologous bone graft, L4-L5 instrumental fixation using transpedicular screws and rods, L4-L5 posterolateral fusion using autologous bone graft and demineralized bone matrix. Microsurgical dissection. DDD lumbar spine s/p elective L4-L5 laminectomy, interbody arthrodesis using PEEK cage and autologous bone graft, L4-L5 instrumental fixation using transpedicular screws and rods, L4-L5 posterolateral fusion using autologous bone graft and demineralized bone matrix. Microsurgical dissection. 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 Now on oral pain medications. Pain well controlled. - Continue with PT - encouraged bedside IS use hourly CAD Aortic stenosis HTN - Continue on Norvasc and Metoprolol. - continue to monitor BP closely. Suspect ARF with stage 3 CKD - improving. Unknown baseline. Creatinine today 1.49. - BNP 533. Repeat in am. Follow. - Lisinopril on hold. Will restart Lasix 40 mg IV daily. - patient follows Dr. Banks live in housekeeper nanny as outpatient and told his kidneys are stable - strict I&Os please. - Renal US ordered and reviewed, unremarkable. - Protein creatinine ratio 1.52. random urine sodium 53, and urine creatinine 90. - No urine eosinophils seen. - avoid nephrotoxic agents Leukocytosis, resolved. - Tmax 100.5 last evening. - CXR shows mild cardiomegaly with subtle positive fluid balance. - UA ordered and results pending. Follow. Anemia - likely postoperative anemia of acute blood loss - no e/o active bleeding - Hemoglobin 8.9. Will monitor CBC in am. Follow. DM - home medications Metformin and Glimepiride on hold - diabetic diet Hyperkalemia, resolved. Status post replacement. Hypocalcemia - protein corrected calcium 7.6 - Vitamin D level low. Will place on weekly supplementation. DVT prophylaxis: SCDs, patient is postoperative. GI prophylaxis: Protonix Discussed with patient, , RN Attending Statement This note was transcribed by scribholden [Brigitte Ward]. I, Dr. Mary Wolfe personally performed the history, physical exam, and medical decision making; and confirmed the accuracy of the information in the transcribed note. Authenticated by Dr. Mary Wolfe on 11/12/16 at 16:50. Brigitte Ward Nov 12, 2016 16:03 Mary Wolfe MD Nov 12, 2016 17:09
[2016-11-12] MEDS: FUROSEMIDE 40 MG/4 ML VIAL IV PUSH SCH (16:14)
[2016-11-12] MEDS: oxyCODONE/ACETAMINOPHEN 10 MG/325 MG TAB PO PRN (16:25)
--- NOTE | 2016-11-12 18:01 | HHI.NSPN ---
History Chief Complaint: numbness left leg Interval History Mr. Agee underwent a L4-L5 laminectomy, interbody arthrodesis using PEEK cage and autologous bone graft, L4-L5 instrumental fixation using transpedicular screws and rods, L4-L5 posterolateral fusion using autologous bone graft and demineralized bone matrix, microsurgical dissection on Nov 09, 2016 for L4-5 spondylolisthesis. 11/10: doing well, moderate surgical pain worse with movements. denies chest pain , difficulty breathing. 11/11: mildly confused but oriented x 3. desated when ambulating this am, improved when sitting now on oxygen. currently denies chest pain, difficulty breathing, leg pain. reports of persistent surgical back pain. dw , pt becomes confused with narcotics. Exam Results Vital Signs Date Time Temp Pulse Resp B/P (MAP) Pulse Ox O2 Delivery O2 Flow Rate FiO2 11/12/16 16:00 97.4 67 17 120/57 (78) 97 11/12/16 13:00 Nasal Cannula 3.00 Intake and Output 11/12/16 11/12/16 11/12/16 07:59 15:59 23:59 Intake Total 520 ml Output Total 20 ml 850 ml Balance -20 ml -330 ml Physical Examination Mr. Agee is mildly to moderately lethargic. His and nurse state that he has had increased lethargy with pain medication. He knows that he is in [facility] and at [facility]. He has slow but clear speech. Moderate slowing of thought processes. No agitation. Wound clean and dry. Cranial nerve examination: pupils equal, round. Facial motor are normal and symmetrical. Sternocleidomastoid and trapezius muscles are symmetrical. Neck is soft and supple Muscle strength is normal in all muscle groups of both upper extremities. Moves major muscle groups of lower extremities well but exam currently limited due to surgical pain. No lower extremity edema of calf tenderness Sensory examination is intact to light touch in both the upper and lower extremities. There is a bilateral plantar flexion response. Heart: NSR Respiratory: clear to auscultate b/l, no labored. on nasal cannula Lab, Micro, Other Results Laboratory Tests Test 11/11/16 22:11 11/11/16 22:21 11/11/16 23:40 11/12/16 11:00 White Blood Count 12.4 TH/MM3 Red Blood Count 2.89 MIL/MM3 Hemoglobin 9.2 GM/DL Hematocrit 28.7 % Mean Corpuscular Volume 99.5 FL Mean Corpuscular Hemoglobin 31.8 PG Mean Corpuscular Hemoglobin Concent 31.9 % Red Cell Distribution Width 14.8 % Platelet Count 146 TH/MM3 Mean Platelet Volume 7.4 FL Neutrophils (%) (Auto) 75.0 % Lymphocytes (%) (Auto) 12.1 % Monocytes (%) (Auto) 12.2 % Eosinophils (%) (Auto) 0.3 % Basophils (%) (Auto) 0.4 % Neutrophils # (Auto) 9.3 TH/MM3 Lymphocytes # (Auto) 1.5 TH/MM3 Monocytes # (Auto) 1.5 TH/MM3 Eosinophils # (Auto) 0.0 TH/MM3 Basophils # (Auto) 0.1 TH/MM3 CBC Comment DIFF FINAL Differential Comment Parathyroid Hormone (Intact) 176.1 PG/ML Blood Urea Nitrogen 36 MG/DL 30 MG/DL Creatinine 1.76 MG/DL 1.49 MG/DL Random Glucose 158 MG/DL 227 MG/DL Calcium Level 7.9 MG/DL 7.6 MG/DL Sodium Level 141 MEQ/L 136 MEQ/L Potassium Level 4.6 MEQ/L 3.9 MEQ/L Chloride Level 106 MEQ/L 101 MEQ/L Carbon Dioxide Level 28.4 MEQ/L 28.3 MEQ/L Anion Gap 7 MEQ/L 7 MEQ/L Estimat Glomerular Filtration Rate 38 ML/MIN 46 ML/MIN 25-Hydroxy Vitamin D Total 9.7 ng/ML Urine Eosinophils NONE SEEN /HPF Urine Random Creatinine 90 MG/DL Urine Random Total Protein 137 MG/DL Urine Random Sodium 53 MEQ/L Urine Protein/Creatinine Ratio 1.52 B-Type Natriuretic Peptide 533 PG/ML Test 11/12/16 11:06 White Blood Count 10.0 TH/MM3 Red Blood Count 2.73 MIL/MM3 Hemoglobin 8.9 GM/DL Hematocrit 27.1 % Mean Corpuscular Volume 99.2 FL Mean Corpuscular Hemoglobin 32.7 PG Mean Corpuscular Hemoglobin Concent 32.9 % Red Cell Distribution Width 14.5 % Platelet Count 136 TH/MM3 Mean Platelet Volume 7.4 FL Neutrophils (%) (Auto) 76.4 % Lymphocytes (%) (Auto) 11.9 % Monocytes (%) (Auto) 10.7 % Eosinophils (%) (Auto) 0.7 % Basophils (%) (Auto) 0.3 % Neutrophils # (Auto) 7.7 TH/MM3 Lymphocytes # (Auto) 1.2 TH/MM3 Monocytes # (Auto) 1.1 TH/MM3 Eosinophils # (Auto) 0.1 TH/MM3 Basophils # (Auto) 0.0 TH/MM3 CBC Comment DIFF FINAL Differential Comment Medical Decision Making Impression and Plan Impression: 1. Stable lower extremity neurologic exam postoperative. 2. Mild mental status changes. Appears at least partially related to narcotic pain medications. Plan: Discussed with the patient and his in the room today. We will decrease the Percocet dose and we have IV morphine as needed for breakthrough pain. Continue his therapy, out of bed as tolerated. elias dvt prophylaxis reyez catheter and drain had been discontinued. Neto Lopez MD Nov 12, 2016 18:01
[2016-11-12] MEDS ORDERED: ERGOCALCIFEROL (VIT D2) 50,000 UNIT CAP PO SCH (20:00)
[2016-11-12] MEDS: LACTOBACILLUS ACIDOPHILUS TAB PO SCH (22:08)
[2016-11-12] MEDS: ALPRAZolam 0.5 MG TAB PO SCH (22:08)
[2016-11-12 22:52] LABS: BACTERIA, URINE RARE /hpf; BLOOD, URINE NEG (NEG); GLUCOSE,URINE NEG (NEG); KETONE, URINE NEG (NEG); NITRITE,URINE NEG (NEG); PH, URINE 5.5 (5.0-8.5); SQUAMOUS EPITHELIAL CELL URINE <1 /hpf (0-5); URINE COLOR LIGHT-YELLOW (YELLW/STRAW)
[2016-11-12 22:53] LABS: COMMENT (UR) CATH-CULTURE IND; CULTURE IF INDICATED CATH CULTURE IND
[2016-11-13] VITALS (8 sets, daily range): BP systolic 109–138; BP diastolic 57–78; PULSE 84–94; RESP 17–20; TEMP 97.5–99.9; O2SAT 94–96
[2016-11-13 02:50] LABS: BLOOD, URINE TRACE (NEG); COMMENT (UR) CULT NOT INDICATED; CULTURE IF INDICATED CULT NOT INDICATED; GLUCOSE,URINE NEG (NEG); HYALINE CAST, URINE 1 /lpf (RARE); KETONE, URINE NEG (NEG); MUCUS URINE FEW /lpf (OCC); NITRITE,URINE NEG (NEG); PH, URINE 5.5 (5.0-8.5); URINE COLOR LIGHT-YELLOW (YELLW/STRAW)
[2016-11-13] MEDS: PRAVASTATIN SOD 40 MG TAB PO SCH (08:23)
[2016-11-13] MEDS: TAMSULOSIN HCL 0.4 MG CAP PO SCH ×2 (08:23→20:43)
[2016-11-13] MEDS: PANTOPRAZOLE SOD 40 MG DELAYED RELEASE TAB PO SCH (08:23)
[2016-11-13] MEDS: FUROSEMIDE 40 MG/4 ML VIAL IV PUSH SCH (08:24)
[2016-11-13] MEDS: METOPROLOL TARTRATE 25 MG TAB PO SCH (08:24)
[2016-11-13] MEDS: VENLAFAXINE HCL XR 75 MG CAP PO SCH (08:27)
[2016-11-13] MEDS: SODIUM CHLORIDE 0.9% FLUSH 5 ML FLUSH IVF SCH ×2 (08:29→20:58)
--- NOTE | 2016-11-13 11:00 | HHI.PR ---
Subjective Remarks Written by Brigitte Ward, acting as scribe for Dr. Wolfe on 11/13/16 at 11:00. Follow up on patient with CAD, DM, ARF, s/p laminectomy and fusion with instrumentation. Patient seen and examined today, sitting up in chair comfortably in nad. Patient on 4 L NC with sats 94%. Denies any new acute events overnight. Denies any shortness of breath. Does complain of productive cough this am. Ambulating well, participating in PT although at times it has been reported his O2 sats drop with activity. Urinating well. Objective Vitals Vital Signs Date Time Temp Pulse Resp B/P (MAP) Pulse Ox O2 Delivery O2 Flow Rate FiO2 11/13/16 10:58 96 Nasal Cannula 3.00 11/13/16 09:10 94 Nasal Cannula 4.00 11/13/16 08:00 98.8 91 19 138/62 (87) 94 11/13/16 04:00 97.5 85 19 136/64 (88) 95 11/13/16 00:00 98.5 89 20 138/78 (98) 94 11/12/16 22:43 96 Nasal Cannula 4.00 11/12/16 22:14 Nasal Cannula 4.00 Humidified 11/12/16 20:00 98.5 20 137/61 (86) 95 11/12/16 16:00 97.4 67 17 120/57 (78) 97 11/12/16 13:00 92 Nasal Cannula 3.00 11/12/16 12:00 97.9 88 17 108/58 (75) 92 I/O 11/12/16 11/12/16 11/12/16 11/13/16 11/13/16 11/13/16 06:59 14:59 22:59 06:59 14:59 22:59 Intake Total 520 ml Output Total 870 ml 500 ml Balance -350 ml -500 ml Intake Oral 520 ml Output Urine Total 850 ml 500 ml Drainage Total 20 ml # Voids 2 # Bowel Movements 0 Result Diagram: 11/12/16 1106 11/12/16 1100 Imaging Last Impressions Renal Ultrasound 11/11/16 0000 Signed Impressions: Service Date/Time: Friday, November 11, 2016 18:22 - CONCLUSION: Normal examination. Jorge Alberto Flores MD Chest X-Ray 11/11/16 0000 Signed Impressions: Service Date/Time: Friday, November 11, 2016 01:15 - CONCLUSION: 1. Mild cardiomegaly with subtle positive fluid balance. Beto Malloy MD Lumbar Spine X-Ray 11/09/16 0000 Signed Impressions: Service Date/Time: Wednesday, November 09, 2016 15:25 - CONCLUSION: 1. Fusion L4-5. Jorge Alberto Flores MD Objective Remarks GENERAL: Well-nourished, well-developed male patient in NAD. Awake and alert. On 4 LNC. SKIN: Warm and dry. No rash. HEAD: Normocephalic. Atraumatic. EYES: EOMI. No scleral icterus. No injection or drainage. ENT: No nasal bleeding or discharge. Mucous membranes pink and moist. NECK: Supple. Trachea midline. CARDIOVASCULAR: Regular rate and rhythm. S1, S2 noted. (+)4/6 systolic murmur. RESPIRATORY: No accessory muscle use. Clear to auscultation but poor effort. Breath sounds equal bilaterally. GASTROINTESTINAL: Abdomen soft, non-tender, nondistended. Normoactive bowel sounds x4. MUSCULOSKELETAL: No obvious deformities. Extremities without clubbing, cyanosis. Mild edema noted in BLE. Negative Homans sign in bilateral lower extremities. NEUROLOGICAL: Awake and alert. Moves all extremities spontaneously. Motor and sensory grossly intact. Normal speech. Procedures s/p 11/09/16 L4-L5 laminectomy, interbody arthrodhesis using PEEK cage and autologous bone graft, L4-L5 instrumental fixation using transpedicular screws and rods, L4-L5 posterolateral fusion using autologous bone graft and demineralized bone matrix. Microsurgical dissection A/P Problem List: (1) Diabetes mellitus ICD Code: E11.9 - Type 2 diabetes mellitus without complications Status: Chronic (2) CAD (coronary artery disease) ICD Code: I25.10 - Atherosclerotic heart disease of [place] coronary artery without angina pectoris Status: Chronic (3) HTN (hypertension) ICD Code: I10 - Essential (primary) hypertension Status: Chronic (4) ARF (acute renal failure) ICD Code: N17.9 - Acute kidney failure, unspecified Status: Acute Assessment and Plan 76yo male with CAD, HTN, DM, HLD, aortic stenosis and anal cancer s/p elective L4-L5 laminectomy, interbody arthrodesis using PEEK cage and autologous bone graft, L4-L5 instrumental fixation using transpedicular screws and rods, L4-L5 posterolateral fusion using autologous bone graft and demineralized bone matrix. Microsurgical dissection. Hypoxia> patient on 4 L O2 Worsening on exertion, Lasix iv has been given, will check d-dimer and lower extremity ultrasound and VQ scan if it came above normal limit need to rule out PE DDD lumbar spine s/p elective L4-L5 laminectomy, interbody arthrodesis using PEEK cage and autologous bone graft, L4-L5 instrumental fixation using transpedicular screws and rods, L4-L5 posterolateral fusion using autologous bone graft and demineralized bone matrix. Microsurgical dissection. 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 Now on oral pain medications. Pain well controlled. - Continue with PT - encouraged bedside IS use hourly CAD Aortic stenosis HTN - Continue on Norvasc and Metoprolol. - continue to monitor BP closely. Suspect ARF with stage 3 CKD - improving. Unknown baseline. Creatinine today 1.49. - BNP 533. Repeat level pending this am. - Lisinopril on hold. Continue Lasix 40 mg IV daily. - patient follows Dr. Banks creative recruiter as outpatient and told his kidneys are stable - strict I&Os please. - Renal US ordered and reviewed, unremarkable. - Protein creatinine ratio 1.52. random urine sodium 53, and urine creatinine 90. - No urine eosinophils seen. - avoid nephrotoxic agents Leukocytosis, resolved. - Afebrile. - CXR shows mild cardiomegaly with subtle positive fluid balance. - Urine culture pending. Follow. Anemia - likely postoperative anemia of acute blood loss - no e/o active bleeding - Hemoglobin 8.9. DM - home medications Metformin and Glimepiride on hold - diabetic diet Hyperkalemia, resolved. Status post replacement. Hypocalcemia - protein corrected calcium 7.6 - Vitamin D level low. Will place on weekly supplementation. DVT prophylaxis: SCDs GI prophylaxis: Protonix Discussed with patient, RN Attending Statement This note was transcribed by christine [Brigitte ward]. I, Dr. Mary Wolfe personally performed the history, physical exam, and medical decision making; and confirmed the accuracy of the information in the transcribed note. Authenticated by Dr. Mary Wolfe on 11/13/16 at 11:17. Brigitte Ward Nov 13, 2016 11:00 Mary Wolfe MD Nov 13, 2016 12:16
[2016-11-13 11:48] LABS: BICARBONATE 28.5 MEQ/L (21.0-32.0)
[2016-11-13] MEDS: PCA - TOTAL MG DILAUDID DELIVERED PER SHIFT SCH ×2 (14:00→22:00)
[2016-11-13] MEDS: oxyCODONE/ACETAMINOPHEN 10 MG/325 MG TAB PO PRN (14:24)
--- NOTE | 2016-11-13 15:54 | HHI.NSPN ---
(Maurice Costa) History Chief Complaint: Slight pain to the back. (Maurice Costa) Interval History Mr. Agee underwent a L4-L5 laminectomy, interbody arthrodesis using PEEK cage and autologous bone graft, L4-L5 instrumental fixation using transpedicular screws and rods, L4-L5 posterolateral fusion using autologous bone graft and demineralized bone matrix, microsurgical dissection on Nov 09, 2016 for L4-5 spondylolisthesis. 11/10: doing well, moderate surgical pain worse with movements. denies chest pain , difficulty breathing. 11/11: mildly confused but oriented x 3. desated when ambulating this am, improved when sitting now on oxygen. currently denies chest pain, difficulty breathing, leg pain. reports of persistent surgical back pain. dw , pt becomes confused with narcotics. 11/12: Mr. Agee is mildly to moderately lethargic. His and nurse state that he has had increased lethargy with pain medication. 11/13: This afternoon the patient is more awake and alert. He readily interacts. Nursing does report that he was attempting to get up on his own. He is in his LSO brace. (Maurice Costa) System Review Comments CONSTITUTIONAL: Patient denies any fever or chills. HEENT: Patient denies any visual or hearing difficulty. CARDIOVASCULAR: Patient denies any chest pain, palpitations or irregular heartbeat. RESPIRATORY: Patient denies any shortness of breath or productive cough. GASTROINTESTINAL: Patient denies any abdominal pain, nausea, vomiting or incontinence of stool. GENITOURINARY: Patient denies any incontinence of urine. MUSCULOSKELETAL: Patient has some mild back pain. He denies any neck or extremity pain. NEUROLOGICAL: Patient states he has numbness to the bottom of the feet which is about the same. He denies any headache, dizziness or tingling. (Maurice Costa) Exam Results 9/8/17 9/8/17 9/9/17 9/9/17 9/10/17 9/10/17 05:59 17:59 05:59 17:59 05:59 17:59 Intake Total 1000 ml 520 ml 720 ml Output Total 8 ml 1470 ml 870 ml 500 ml 500 ml Balance 992 ml -1470 ml -350 ml -500 ml 220 ml Intake Oral 520 ml 720 ml IV Total 1000 ml Output Urine Total 1450 ml 850 ml 500 ml 500 ml Drainage Total 8 ml 20 ml 20 ml # Voids 3 2 3 # Bowel Movements 2 0 Vital Signs Date Time Temp Pulse Resp B/P (MAP) Pulse Ox O2 Delivery O2 Flow Rate FiO2 11/13/16 12:08 99.3 84 17 125/58 (80) 96 11/13/16 10:58 96 Nasal Cannula 3.00 11/13/16 09:10 94 Nasal Cannula 4.00 11/13/16 08:00 98.8 91 19 138/62 (87) 94 11/13/16 04:00 97.5 85 19 136/64 (88) 95 11/13/16 00:00 98.5 89 20 138/78 (98) 94 11/12/16 22:43 96 Nasal Cannula 4.00 11/12/16 22:14 Nasal Cannula 4.00 Humidified 11/12/16 20:00 98.5 20 137/61 (86) 95 11/12/16 16:00 97.4 67 17 120/57 (78) 97 11/12/16 13:00 92 Nasal Cannula 3.00 11/12/16 12:00 97.9 88 17 108/58 (75) 92 11/12/16 09:50 97 Nasal Cannula 5.00 11/12/16 08:00 97.7 94 17 152/70 (97) 95 11/12/16 04:34 94 Nasal Cannula 4.00 11/12/16 04:00 98.8 98 18 110/76 (87) 94 11/12/16 03:45 96 Nasal Cannula 6.00 11/12/16 01:14 94 Simple Mask 7.00 11/12/16 00:00 98.4 105 18 124/54 (77) 93 11/11/16 21:00 95 Simple Mask 7.00 11/11/16 20:00 100.1 111 18 107/73 (84) 93 11/11/16 18:00 96 Nasal Cannula 2.00 11/11/16 11:30 100.5 98 20 109/57 (74) 90 11/11/16 11:24 96 Nasal Cannula 2.00 11/11/16 08:43 98.9 101 20 130/86 (101) 93 11/11/16 06:00 17 11/11/16 05:50 Simple Mask 4.00 11/11/16 04:00 98.4 67 20 115/53 (73) 94 11/11/16 02:09 18 11/11/16 00:00 99.9 104 18 105/58 (74) 91 11/10/16 22:00 18 11/10/16 20:00 98.1 97 18 119/53 (75) 94 11/10/16 18:11 93 Nasal Cannula 2.00 11/10/16 16:09 97.8 85 20 124/58 (80) 93 (Maurice Costa) Physical Examination GENERAL: Patient is awake and alert and just sat down in the chair with assistance. He readily interacts. His affect is normal. He is not in any distress. SKIN: Warm, dry & intact except for an intact lumbar surgical incision dressing w/o any shadowing on it. HEENT: Normocephalic, atraumatic. NECK: Midline cervical spine NTTP, full active ROM, no JVD, trachea midline. CARDIOVASCULAR: S1S2 w/RRR w/grade III/ murmur, radial & pedal pulses 2+ bilaterally, cap refill < 2 sec, 1+ pedal edema. RESPIRATORY: CTAB w/o W/R/R, equal excursion, nonlaboured, on NC. GASTROINTESTINAL: Abdomen moderately distended which is normal for patient, nontender, positive bowel sounds. MUSCULOSKELETAL: HALEY w/o difficulty, no evident deformity or clubbing, intact post-surgical dressing to lumbar spine TTP midline and to paraspinals, in LSO brace. NEUROLOGICAL: AAOx3. Speech clear & appropriate. Follows simple commands w/o difficulty. Sensation to light touch intact to all extremities except for the bottom of both feet. Motor strength 5/5 to all major flexion and extension muscle groups except for left toe extension is 3+/5 and big toe is 3/5. (Maurice Costa) Lab, Micro, Other Results Recent Impressions Renal Ultrasound 11/11/16 0000 Signed Impressions: Service Date/Time: Friday, November 11, 2016 18:22 - CONCLUSION: Normal examination. Jorge Alberto Flores MD Chest X-Ray 11/11/16 0000 Signed Impressions: Service Date/Time: Friday, November 11, 2016 01:15 - CONCLUSION: 1. Mild cardiomegaly with subtle positive fluid balance. Beto Malloy MD Laboratory Tests Test 11/10/16 16:30 11/11/16 01:56 11/11/16 22:11 11/11/16 22:21 Blood Urea Nitrogen 39 MG/DL 40 MG/DL 36 MG/DL Creatinine 2.28 MG/DL 2.13 MG/DL 1.76 MG/DL Random Glucose 271 MG/DL 149 MG/DL 158 MG/DL Total Protein 6.9 GM/DL 6.4 GM/DL Calcium Level 7.4 MG/DL 7.3 MG/DL 7.9 MG/DL Sodium Level 136 MEQ/L 139 MEQ/L 141 MEQ/L Potassium Level 6.4 MEQ/L 5.5 MEQ/L 4.6 MEQ/L Chloride Level 105 MEQ/L 109 MEQ/L 106 MEQ/L Carbon Dioxide Level 25.1 MEQ/L 24.4 MEQ/L 28.4 MEQ/L Anion Gap 6 MEQ/L 6 MEQ/L 7 MEQ/L Estimat Glomerular Filtration Rate 28 ML/MIN 30 ML/MIN 38 ML/MIN Protein Corrected Calcium 7.5 MG/DL 7.7 MG/DL White Blood Count 12.4 TH/MM3 Red Blood Count 2.89 MIL/MM3 Hemoglobin 9.2 GM/DL Hematocrit 28.7 % Mean Corpuscular Volume 99.5 FL Mean Corpuscular Hemoglobin 31.8 PG Mean Corpuscular Hemoglobin Concent 31.9 % Red Cell Distribution Width 14.8 % Platelet Count 146 TH/MM3 Mean Platelet Volume 7.4 FL Neutrophils (%) (Auto) 75.0 % Lymphocytes (%) (Auto) 12.1 % Monocytes (%) (Auto) 12.2 % Eosinophils (%) (Auto) 0.3 % Basophils (%) (Auto) 0.4 % Neutrophils # (Auto) 9.3 TH/MM3 Lymphocytes # (Auto) 1.5 TH/MM3 Monocytes # (Auto) 1.5 TH/MM3 Eosinophils # (Auto) 0.0 TH/MM3 Basophils # (Auto) 0.1 TH/MM3 CBC Comment DIFF FINAL Differential Comment Parathyroid Hormone (Intact) 176.1 PG/ML 25-Hydroxy Vitamin D Total 9.7 ng/ML Test 11/11/16 23:40 11/12/16 11:00 11/12/16 11:06 11/12/16 22:20 Urine Eosinophils NONE SEEN /HPF Urine Random Creatinine 90 MG/DL Urine Random Total Protein 137 MG/DL Urine Random Sodium 53 MEQ/L Urine Protein/Creatinine Ratio 1.52 Blood Urea Nitrogen 30 MG/DL Creatinine 1.49 MG/DL Random Glucose 227 MG/DL Calcium Level 7.6 MG/DL Sodium Level 136 MEQ/L Potassium Level 3.9 MEQ/L Chloride Level 101 MEQ/L Carbon Dioxide Level 28.3 MEQ/L Anion Gap 7 MEQ/L Estimat Glomerular Filtration Rate 46 ML/MIN B-Type Natriuretic Peptide 533 PG/ML White Blood Count 10.0 TH/MM3 Red Blood Count 2.73 MIL/MM3 Hemoglobin 8.9 GM/DL Hematocrit 27.1 % Mean Corpuscular Volume 99.2 FL Mean Corpuscular Hemoglobin 32.7 PG Mean Corpuscular Hemoglobin Concent 32.9 % Red Cell Distribution Width 14.5 % Platelet Count 136 TH/MM3 Mean Platelet Volume 7.4 FL Neutrophils (%) (Auto) 76.4 % Lymphocytes (%) (Auto) 11.9 % Monocytes (%) (Auto) 10.7 % Eosinophils (%) (Auto) 0.7 % Basophils (%) (Auto) 0.3 % Neutrophils # (Auto) 7.7 TH/MM3 Lymphocytes # (Auto) 1.2 TH/MM3 Monocytes # (Auto) 1.1 TH/MM3 Eosinophils # (Auto) 0.1 TH/MM3 Basophils # (Auto) 0.0 TH/MM3 CBC Comment DIFF FINAL Differential Comment Urine Color LIGHT-YELLOW Urine Turbidity CLEAR Urine pH 5.5 Urine Specific [place] 1.009 Urine Protein 30 mg/dL Urine Glucose (UA) NEG mg/dL Urine Ketones NEG mg/dL Urine Occult Blood NEG Urine Nitrite NEG Urine Bilirubin NEG Urine Urobilinogen LESS THAN 2.0 MG/DL Urine Leukocyte Esterase NEG Urine RBC 1 /hpf Urine WBC 1 /hpf Urine Squamous Epithelial Cells <1 /hpf Urine Bacteria RARE /hpf Microscopic Urinalysis Comment CATH-CULTURE IND Test 11/13/16 02:23 11/13/16 10:31 11/13/16 12:05 Urine Color LIGHT-YELLOW Urine Turbidity CLEAR Urine pH 5.5 Urine Specific [place] 1.012 Urine Protein 30 mg/dL Urine Glucose (UA) NEG mg/dL Urine Ketones NEG mg/dL Urine Occult Blood TRACE Urine Nitrite NEG Urine Bilirubin NEG Urine Urobilinogen LESS THAN 2.0 MG/DL Urine Leukocyte Esterase NEG Urine RBC 1 /hpf Urine WBC 3 /hpf Urine Hyaline Casts 1 /lpf Urine Mucus FEW /lpf Microscopic Urinalysis Comment CULT NOT INDICATED Blood Urea Nitrogen 32 MG/DL Creatinine 1.60 MG/DL Random Glucose 218 MG/DL Calcium Level 9.0 MG/DL Sodium Level 135 MEQ/L Potassium Level 4.0 MEQ/L Chloride Level 98 MEQ/L Carbon Dioxide Level 28.5 MEQ/L Anion Gap 9 MEQ/L Estimat Glomerular Filtration Rate 42 ML/MIN B-Type Natriuretic Peptide 342 PG/ML D-Dimer Quantitative (PE/DVT) 4.28 MG/L FEU (Maurice Costa) Medical Decision Making Impression and Plan Impression: 1. Stable lower extremity neurologic exam postoperative. 2. Mild mental status changes. Appears at least partially related to narcotic pain medications. Patient more awake & alert today, neurological intact except for mild sensory deficit to the bottom of both feet and decreased motor function to the left foot toes upon extension. Plan: Pain medication adjusted. Mobilise patient w/assistance. LSO brace on when OOB. PT eval & tx. (Maurice Costa) Attending Statement The exam, history, and the medical decision-making described in the above note were completed with the assistance of the mid-level provider. I reviewed and agree with the findings presented. I attest that I had a [id number] encounter with the patient on the same day, and personally performed and documented my assessment and findings in the medical record. Patient sitting up in chair this morning. Much more alert conversant and appropriate. Still with mild confusion. Motor function intact lower extremities. Stable postoperative neurologic function. Discussed with patient and his . Continue therapy Possible inpatient rehabilitation (Neto Lopez MD) Maurice Costa Nov 13, 2016 15:54 Neto Lopez MD Nov 13, 2016 16:05
--- NOTE | 2016-11-13 18:20 | RADRPT ---
EXAM DATE/TIME: 11/13/2016 17:41 [facility] COMPARISON: No previous studies available for comparison. INDICATIONS : Bilateral leg swelling. MEDICAL HISTORY : Hypercholesterolemia. Hypertension. Carcinoma, prostate. Bilateral ischemic opt ic neuropathy. Valvular heart disease. Chest pain. IBS. Arthritis. BPH. Diabetes. SURGICAL HISTORY : Tonsillectomy.CABG Bilateral cataracts. Left eye prosthesis. Adenoidectomy. Clarisse mbar disc surgery. Aortic valve replacement. Radiation therapy. Left knee scope. Colonoscopy. ENCOUNTER: Initial ACUITY: 1 week PAIN SCORE: 5/10 LOCATION: Bilateral leg. TECHNIQUE: Venous ultrasound of the left and right leg was performed from the inguinal ligament t o the proximal calf. Real-time, color Doppler and spectral tracing, compression and augmentation vera hniques were used. FINDINGS: RIGHT LEG: There is normal compressibility of the deep venous system from the inguinal region to the proximal calf. No echogenic clot is seen in the lumen of the common femoral, femoral, popliteal, and posterior tibial veins. There is a normal response of the venous system to proximal and distal augmentation and respiration. LEFT LEG: There is normal compressibility of the deep venous system from the inguinal region to t he proximal calf. No echogenic clot is seen in the lumen of the common femoral, femoral, popliteal, and posterior tibial veins. There is a normal response of the venous system to proximal and distal a ugmentation and respiration. CONCLUSION: No evidence of DVT. Kel Bernstein MD on November 13, 2016 at 18:18 Board Certified Radiologist. This report was verified electronically.
--- NOTE | 2016-11-13 19:07 | RADRPT ---
EXAM DATE/TIME: 11/13/2016 18:35 [facility] COMPARISON: CHEST SINGLE AP, November 11, 2016, 1:15. INDICATIONS : Dyspnea. MEDICAL HISTORY : Hypercholesterolemia. Hypertension Carcinoma, prostatic. Bilateral ischemic optic neuropathy. Bindu vular heart disease. Chest pain. IBS. Arthritis. BPH. Diabetes. SURGICAL HISTORY : Tonsillectomy. CABG. Bilateral cataracts. Left eye prosthesis. Adenoidectomy. Lumbar disc surgery. A ortic valve replacement. Radiation therapy. Left knee scope. Colonoscopy. ENCOUNTER: Subsequent ACUITY: 2 days PAIN SCORE: 0/10 LOCATION: Bilateral chest FINDINGS: A single view of the chest demonstrates mild vascular congestion without pulmonary edema or consolida ting airspace disease. Heart is mildly enlarged. There are no effusions or mass densities. CONCLUSION: Mild vascular congestion without evidence of pulmonary edema. Cardiomegaly No consolidating infiltrate. Kel Bernstein MD on November 13, 2016 at 19:01 Board Certified Radiologist. This report was verified electronically.
--- NOTE | 2016-11-13 19:25 | RADRPT ---
EXAM DATE/TIME: 11/13/2016 18:48 [facility] COMPARISON: CHEST SINGLE AP, November 13, 2016, 18:35. INDICATIONS : Short of breath for 1 day. DOSE: 8.1 mCi Tc99m MAA IV 1.9 mCi Tc99m DTPA aerosol MEDICAL HISTORY : Carcinoma, prostate. Cardiovascular disease Diabetes mellitus type 2. Smoker. SURGICAL HISTORY : CABG Laminectomy and aortic valve replacement. ENCOUNTER: Initial ACUITY: 1 day PAIN SCALE: 2/10 LOCATION: Bilateral chest TECHNIQUE: Following five minutes of tidal breathing of DTPA aerosol, planar images of the lungs were performed in eight projections. The patient was then injected with MAA, and eight-view perfusion scan was perf ormed. FINDINGS: There is a heterogeneous pattern of aerosol delivery to the periphery of both lungs. No discrete foc al ventilatory defects are seen. The perfusion lung scan demonstrates a homogenous pattern of uptake in both lungs. No segmental or s ubsegmental defects are seen. CONCLUSION: Low probability of pulmonary embolism Heterogeneous ventilation scan suggesting COPD. Kel Bernstein MD on November 13, 2016 at 19:22 Board Certified Radiologist. This report was verified electronically.
[2016-11-13] MEDS: ALPRAZolam 0.5 MG TAB PO SCH (20:43)
[2016-11-13] MEDS: LACTOBACILLUS ACIDOPHILUS TAB PO SCH (20:43)
[2016-11-14] VITALS (7 sets, daily range): BP systolic 107–144; BP diastolic 49–69; PULSE 68–87; RESP 17–20; TEMP 96.5–100.1; O2SAT 90–96
[2016-11-14] MEDS: oxyCODONE/ACETAMINOPHEN 5 MG/325 MG TAB PO PRN ×2 (02:12→21:26)
[2016-11-14] MEDS: VENLAFAXINE HCL XR 75 MG CAP PO SCH (07:50)
[2016-11-14] MEDS: METOPROLOL TARTRATE 25 MG TAB PO SCH (07:50)
[2016-11-14] MEDS: PRAVASTATIN SOD 40 MG TAB PO SCH (07:50)
[2016-11-14] MEDS: PANTOPRAZOLE SOD 40 MG DELAYED RELEASE TAB PO SCH (07:50)
[2016-11-14] MEDS: TAMSULOSIN HCL 0.4 MG CAP PO SCH ×2 (07:51→21:26)
[2016-11-14] MEDS: FUROSEMIDE 40 MG/4 ML VIAL IV PUSH SCH (07:51)
[2016-11-14] MEDS: SODIUM CHLORIDE 0.9% FLUSH 5 ML FLUSH IVF SCH ×2 (08:18→21:27)
--- NOTE | 2016-11-14 09:34 | HHI.PR ---
Subjective Remarks Written by Brigitte Ward, acting as scribe for Dr. Wolfe on 11/14/16 at 09:34. Follow up on patient with CAD, DM, ARF, s/p laminectomy and fusion with instrumentation. Patient seen and examined today, sitting up in chair, at bedside. Awake and alert. Denies any new complaints overnight. Continued on 4L NC, Sats 92%, unable to wean overnight. Dyspnea improved. Tolerating PO. Afebrile. Objective Vitals Vital Signs Date Time Temp Pulse Resp B/P (MAP) Pulse Ox O2 Delivery O2 Flow Rate FiO2 11/14/16 08:04 96.7 81 17 113/69 (84) 91 11/14/16 04:00 98.7 71 20 107/57 (74) 92 11/14/16 03:32 14 11/14/16 00:00 100.1 87 18 128/59 (82) 92 11/13/16 20:00 99.2 89 18 109/57 (74) 96 11/13/16 19:00 96 Nasal Cannula 4.00 11/13/16 16:05 99.9 94 20 131/61 (84) 95 11/13/16 15:24 19 11/13/16 12:08 99.3 84 17 125/58 (80) 96 11/13/16 10:58 96 Nasal Cannula 3.00 I/O 11/13/16 11/13/16 11/13/16 11/14/16 11/14/16 11/14/16 07:00 15:00 23:00 07:00 15:00 23:00 Intake Total 720 ml 218 ml Output Total 500 ml 500 ml Balance -500 ml 220 ml 218 ml Intake Oral 720 ml 218 ml Output Urine Total 500 ml 500 ml # Voids 3 1 1 Result Diagram: 11/12/16 1106 11/13/16 1031 Imaging Last Impressions Lung Scan-VQ Nuclear Medicine 11/13/16 0000 Signed Impressions: Service Date/Time: Sunday, November 13, 2016 18:48 - CONCLUSION: Low probability of pulmonary embolism Heterogeneous ventilation scan suggesting COPD. Kel Bernstein MD Lower Extremity Ultrasound 11/13/16 0000 Signed Impressions: Service Date/Time: Sunday, November 13, 2016 17:41 - CONCLUSION: No evidence of DVT. Kel Bernstein MD Chest X-Ray 11/13/16 0000 Signed Impressions: Service Date/Time: Sunday, November 13, 2016 18:35 - CONCLUSION: Mild vascular congestion without evidence of pulmonary edema. Cardiomegaly No consolidating infiltrate. Kel Bernstein MD Renal Ultrasound 11/11/16 0000 Signed Impressions: Service Date/Time: Friday, November 11, 2016 18:22 - CONCLUSION: Normal examination. Jorge Alberto Flores MD Lumbar Spine X-Ray 11/09/16 0000 Signed Impressions: Service Date/Time: Wednesday, November 09, 2016 15:25 - CONCLUSION: 1. Fusion L4-5. Jorge Alberto Flores MD Objective Remarks GENERAL: Well-nourished, well-developed male patient in NAD. Awake and alert. On 4 LNC. SKIN: Warm and dry. No rash. HEAD: Normocephalic. Atraumatic. EYES: EOMI. No scleral icterus. No injection or drainage. ENT: No nasal bleeding or discharge. Mucous membranes pink and moist. NECK: Supple. Trachea midline. CARDIOVASCULAR: Regular rate and rhythm. S1, S2 noted. (+)4/6 systolic murmur. RESPIRATORY: No accessory muscle use. Clear to auscultation but poor effort. Breath sounds equal bilaterally. GASTROINTESTINAL: Abdomen soft, non-tender, nondistended. Normoactive bowel sounds x4. MUSCULOSKELETAL: No obvious deformities. Extremities without clubbing, cyanosis. Mild edema noted in BLE. Negative Homans sign in bilateral lower extremities. NEUROLOGICAL: Awake and alert. Moves all extremities spontaneously. Motor and sensory grossly intact. Normal speech. Procedures s/p 11/09/16 L4-L5 laminectomy, interbody arthrodhesis using PEEK cage and autologous bone graft, L4-L5 instrumental fixation using transpedicular screws and rods, L4-L5 posterolateral fusion using autologous bone graft and demineralized bone matrix. Microsurgical dissection A/P Problem List: (1) Diabetes mellitus ICD Code: E11.9 - Type 2 diabetes mellitus without complications Status: Chronic (2) CAD (coronary artery disease) ICD Code: I25.10 - Atherosclerotic heart disease of [place] coronary artery without angina pectoris Status: Chronic (3) HTN (hypertension) ICD Code: I10 - Essential (primary) hypertension Status: Chronic (4) ARF (acute renal failure) ICD Code: N17.9 - Acute kidney failure, unspecified Status: Acute Assessment and Plan 76yo male with CAD, HTN, DM, HLD, aortic stenosis and anal cancer s/p elective L4-L5 laminectomy, interbody arthrodesis using PEEK cage and autologous bone graft, L4-L5 instrumental fixation using transpedicular screws and rods, L4-L5 posterolateral fusion using autologous bone graft and demineralized bone matrix. Microsurgical dissection. 11/13: Hypoxia, patient on 4 L O2. Worsening on exertion, Lasix iv has been given , will check d-dimer and lower extremity ultrasound and VQ scan if it came above normal limit need to rule out PE. 11/14: Patient feels okay despite still on 4 L nasal cannula O2. VQ scan showing low probability of PE. Bilateral lower extremity edema negative for DVT. CXR reviewed showing mild congestion without pulmonary edema and no consolidating infiltrate. Patient continued on 4L NC, sats 92%. Unable to wean, sats drop with increasing activity. Will consider PFT work up. Spoke to patient and about possibility of needing home O2 if unable to wean. All questions answered. Trending BNP, awaiting labs this am. Follow. DDD lumbar spine s/p elective L4-L5 laminectomy, interbody arthrodesis using PEEK cage and autologous bone graft, L4-L5 instrumental fixation using transpedicular screws and rods, L4-L5 posterolateral fusion using autologous bone graft and demineralized bone matrix. Microsurgical dissection. 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 Now on oral pain medications. Pain well controlled. - Continue with PT. - Encouraged bedside IS use hourly. CAD Aortic stenosis HTN - Continue on Norvasc and Metoprolol. BP well controlled. Monitor. Suspect ARF with stage 3 CKD - improving. Unknown baseline. Awaiting labs today. Follow. - BNP 533-->342. Repeat level pending this am. - Lisinopril on hold. Continue Lasix 40 mg IV daily. - patient follows Dr. Banks asp net programmer as outpatient and told his kidneys are stable - strict I&Os please. - Renal US ordered and reviewed, unremarkable. - Protein creatinine ratio 1.52. random urine sodium 53, and urine creatinine 90. - No urine eosinophils seen. - avoid nephrotoxic agents Leukocytosis, resolved. - Afebrile. - CXR shows mild cardiomegaly with subtle positive fluid balance. - Urine culture pending. Follow. Anemia - likely postoperative anemia of acute blood loss - no e/o active bleeding - Hemoglobin 8.9. Awaiting am labs. DM - home medications Metformin and Glimepiride on hold - diabetic diet Hyperkalemia, resolved. Status post replacement. Hypocalcemia - protein corrected calcium 7.6 - Vitamin D level low. Continue weekly supplementation. DVT prophylaxis: SCDs GI prophylaxis: Protonix Discussed with patient, RN Attending Statement This note was transcribed by scribe [Brigitte Ward]. I, Dr. Mary Wolfe personally performed the history, physical exam, and medical decision making; and confirmed the accuracy of the information in the transcribed note. Authenticated by Dr. Mary Wolfe on 11/14/16 at 9:48. Brigitte Ward Nov 14, 2016 09:34 Mary Wolfe MD Nov 14, 2016 10:08
--- NOTE | 2016-11-14 10:34 | HHI.NSPN ---
History Chief Complaint: Incisional back pain and some pain radiating into bilateral anterior thighs Interval History 11/14/16: Pt awake and alert. Sitting up in chair. Complains of incisional back pain radiating into bilateral anterior thighs not past the knees. No paresthesias in LEs. Pt ambulates short distance. Review of Systems General: Negative for: fever, chills, insomnia Respiratory: Negative for: shortness of breath, cough, sputum Cardiovascular: Negative for: chest pain Gastrointestinal: Negative for: nausea, vomitting, diarrhea, constipation Exam Results Vital Signs Date Time Temp Pulse Resp B/P (MAP) Pulse Ox O2 Delivery O2 Flow Rate FiO2 11/14/16 08:04 96.7 81 17 113/69 (84) 91 11/13/16 19:00 Nasal Cannula 4.00 Physical Examination Resp: CTA bilaterally Heart: NSR no murmurs Abd: Soft positive bs Skin: No cyanosis or erythema Muscle: Moves LEs with good strength. Neuro: Pt awake and alert. Pupils equal. Follows commands well. Speech clear and appropriate. Lab, Micro, Other Results Last Impressions Lung Scan-V Nuclear Medicine 11/13/16 0000 Signed Impressions: Service Date/Time: Sunday, November 13, 2016 18:48 - CONCLUSION: Low probability of pulmonary embolism Heterogeneous ventilation scan suggesting COPD. Kel Bernstein MD Lower Extremity Ultrasound 11/13/16 0000 Signed Impressions: Service Date/Time: Sunday, November 13, 2016 17:41 - CONCLUSION: No evidence of DVT. Kel Bernstein MD Chest X-Ray 11/13/16 0000 Signed Impressions: Service Date/Time: Sunday, November 13, 2016 18:35 - CONCLUSION: Mild vascular congestion without evidence of pulmonary edema. Cardiomegaly No consolidating infiltrate. Kel Bernstein MD Renal Ultrasound 11/11/16 0000 Signed Impressions: Service Date/Time: Friday, November 11, 2016 18:22 - CONCLUSION: Normal examination. Jorge Alberto Flores MD Lumbar Spine X-Ray 11/09/16 0000 Signed Impressions: Service Date/Time: Wednesday, November 09, 2016 15:25 - CONCLUSION: 1. Fusion L4-5. Jorge Alberto Flores MD Laboratory Tests Test 11/13/16 12:05 D-Dimer Quantitative (PE/DVT) 4.28 MG/L FEU Medical Decision Making Impression and Plan A: 76 y/o M s/p L4/L5 PLIF P: Continue with PT Rehab vs home depending on is progress. Continue with pain control. Pt has less lethargy and improving. Adam Ornelas Nov 14, 2016 10:34
[2016-11-14] MEDS: oxyCODONE/ACETAMINOPHEN 10 MG/325 MG TAB PO PRN (11:19)
[2016-11-14 12:14] LABS: AUTOMATED NEUTROPHIL # 6.3 TH/MM3 (1.8-7.7); BASOPHIL % 0.2 % (0.0-2.0); EOSINOPHIL # 0.2 TH/MM3 (0-0.4); HEMATOCRIT 27.5 % (39.0-51.0); HEMO FLAGS DIFF FINAL; LYMPH % 12.2 % (9.0-44.0); LYMPHOCYTE # 1.1 TH/MM3 (1.0-4.8); MEAN CELL VOLUME 97.6 FL (80.0-100.0); MEAN CORPUSCULAR HEMOGLOBIN 32.9 PG (27.0-34.0); MEAN CORPUSCULAR HGB CONC 33.7 % (32.0-36.0); MONO % 12.7 % (0.0-8.0); NEUT % 72.9 % (16.0-70.0); PLATELET COUNT 160 TH/MM3 (150-450); RED BLOOD COUNT 2.81 MIL/MM3 (4.50-5.90); RED CELL DISTRIBUTION WIDTH 14.1 % (11.6-17.2); WHITE BLOOD COUNT 8.7 TH/MM3 (4.0-11.0)
[2016-11-14 12:29] LABS: BICARBONATE 29.9 MEQ/L (21.0-32.0)
[2016-11-14] MEDS: LACTOBACILLUS ACIDOPHILUS TAB PO SCH (21:26)
[2016-11-14] MEDS: ALPRAZolam 0.5 MG TAB PO SCH (21:26)
[2016-11-15] VITALS (7 sets, daily range): BP systolic 109–139; BP diastolic 52–63; PULSE 70–77; RESP 20; TEMP 97.4–98.6; O2SAT 91–97
[2016-11-15] MEDS: PANTOPRAZOLE SOD 40 MG DELAYED RELEASE TAB PO SCH (08:13)
[2016-11-15] MEDS: VENLAFAXINE HCL XR 75 MG CAP PO SCH (08:13)
[2016-11-15] MEDS: METOPROLOL TARTRATE 25 MG TAB PO SCH (08:13)
[2016-11-15] MEDS: TAMSULOSIN HCL 0.4 MG CAP PO SCH (08:13)
[2016-11-15] MEDS: SODIUM CHLORIDE 0.9% FLUSH 5 ML FLUSH IVF SCH (08:14)
[2016-11-15] MEDS: PRAVASTATIN SOD 40 MG TAB PO SCH (08:14)
[2016-11-15] MEDS: FUROSEMIDE 40 MG/4 ML VIAL IV PUSH SCH (08:14)
--- NOTE | 2016-11-15 11:59 | HHI.NSPN ---
(Conchis Jose) Note Status Status: Progress Note (Conchis Jose) Interval History Interval History Mr. Agee underwent a L4-L5 laminectomy, interbody arthrodesis using PEEK cage and autologous bone graft, L4-L5 instrumental fixation using transpedicular screws and rods, L4-L5 posterolateral fusion using autologous bone graft and demineralized bone matrix, microsurgical dissection on Nov 09, 2016 for L4-5 spondylolisthesis. 11/10: doing well, moderate surgical pain worse with movements. denies chest pain , difficulty breathing. 11/11: mildly confused but oriented x 3. desated when ambulating this am, improved when sitting now on oxygen. currently denies chest pain, difficulty breathing, leg pain. reports of persistent surgical back pain. dw , pt becomes confused with narcotics. 11/15: reports of residual pain to lateral thighs bilaterally, and c/o of incisional pain. No wound drainage, no fevers or chills. reports to be ambulating better. (Conchis Jose) Labs, Micro, & Vital Signs Results Date Time Temp Pulse Resp B/P (MAP) Pulse Ox O2 Delivery O2 Flow Rate FiO2 11/15/16 08:00 98.3 77 20 123/56 (78) 94 11/15/16 07:45 95 Nasal Cannula 4.00 11/15/16 07:45 95 Nasal Cannula 4.00 11/15/16 07:00 95 Nasal Cannula 4.00 11/15/16 04:00 98.3 73 20 109/52 (71) 97 11/15/16 01:24 96 Nasal Cannula 4.00 11/15/16 00:00 98.6 73 20 118/58 (78) 92 11/14/16 23:44 12 11/14/16 21:57 Nasal Cannula 4.00 11/14/16 21:25 14 11/14/16 20:00 97.6 76 20 144/61 (88) 90 11/14/16 16:14 96.9 68 17 114/49 (70) 96 11/14/16 12:10 96.5 73 20 128/55 (79) 94 11/16/16 07:00 Output Total 800 ml Balance -800 ml Constitutional Vital Signs Date Time Temp Pulse Resp B/P (MAP) Pulse Ox O2 Delivery O2 Flow Rate FiO2 11/15/16 08:00 98.3 77 20 123/56 (78) 94 11/15/16 07:45 95 Nasal Cannula 4.00 11/15/16 07:45 95 Nasal Cannula 4.00 11/15/16 07:00 95 Nasal Cannula 4.00 11/15/16 04:00 98.3 73 20 109/52 (71) 97 11/15/16 01:24 96 Nasal Cannula 4.00 11/15/16 00:00 98.6 73 20 118/58 (78) 92 11/14/16 23:44 12 11/14/16 21:57 Nasal Cannula 4.00 11/14/16 21:25 14 11/14/16 20:00 97.6 76 20 144/61 (88) 90 11/14/16 16:14 96.9 68 17 114/49 (70) 96 11/14/16 12:10 96.5 73 20 128/55 (79) 94 11/16/16 07:00 Output Total 800 ml Balance -800 ml (Conchis Jose) Review of Systems Constitutional: DENIES: Fever, Chills Respiratory: DENIES: Cough, Shortness of breath Cardiovascular: DENIES: Chest pain, Dyspnea on Exertion Genitourinary: DENIES: Urinary incontinence Musculoskeletal: COMPLAINS OF: Back pain Neurologic: COMPLAINS OF: Paresthesias, DENIES: Localized weakness (Conchis Jose) Physical Exam Alert and oriented x 3. Speech is fluent and appropriate. Both surgical wounds are healing well, no drainage or redness seen. There is some yellow/green streaking noted on the bandage. He is afebrile. Motor: 5/5 in both iliopsoas, quads, hamstrings, gastrocnemius, tibialis anterior and EHL. Sensory: intact to light touch in lower extremities Plantars flexors bilaterally. No ankle clonus. (Conchis Jose) Medications Current Medications Current Medications Medications (Trade) Dose Ordered Sig/Ave Route PRN Reason Start Time Stop Time Status Last Admin Dose Admin IV Flush (NS Flush) 2 ml UNSCH PRN IVF FLUSH AFTER USING IV ACCESS 11/09/16 20:00 IV Flush (NS Flush) 2 ml BID IVF 11/09/16 21:00 11/15/16 08:14 Morphine Sulfate (Morphine Inj) 2 mg Q2H PRN IV PUSH breakthrough pain 11/09/16 20:00 Acetaminophen (Tylenol) 650 mg Q4H PRN PO TEMPERATURE > 101.5 F 11/09/16 20:00 Alprazolam (Xanax) 0.5 mg HS PO 11/10/16 21:00 11/14/16 21:26 Amlodipine Besylate (Norvasc) 10 mg DAILY PO 11/11/16 09:00 11/15/16 08:13 Lactobacillus Acidophilus (Lactinex) 1 tab HS PO 11/10/16 21:00 11/14/16 21:26 Pravastatin Sodium (Pravachol) 40 mg DAILY PO 11/11/16 09:00 11/15/16 08:14 Metoprolol Tartrate (Lopressor) 12.5 mg DAILY PO 11/11/16 09:00 11/15/16 08:13 Tamsulosin HCl (Flomax) 0.4 mg BID PO 11/10/16 21:00 11/15/16 08:13 Venlafaxine HCl (Effexor Xr) 75 mg DAILY PO 11/11/16 09:00 11/15/16 08:13 Miscellaneous (Pill Splitter) 1 ea UNSCH PRN OTHER SEE LABEL COMMENTS 11/10/16 15:15 Oxycodone/ Acetaminophen (Percocet 10-325 Mg) 1 tab Q4H PRN PO PAIN SCALE 6 TO 10 11/11/16 09:15 11/14/16 11:19 Pantoprazole Sodium (Protonix) 40 mg DAILY PO 11/12/16 09:00 11/15/16 08:13 Furosemide (Lasix Inj) 40 mg DAILY IV PUSH 11/12/16 16:00 11/15/16 08:14 Ergocalciferol (Drisdol) 50,000 units Q7D PO 11/12/16 20:00 11/12/16 22:08 Oxycodone/ Acetaminophen (Percocet 5-325 Mg) 1 tab Q4H PRN PO PAIN SCALE 1 TO 5 11/13/16 16:00 11/15/16 12:49 (Conchis Jose) Medical Decision Making MDM Remarks 76 y/o male s/p L4-L5 laminectomy, interbody arthrodesis using PEEK cage and autologous bone graft, L4-L5 instrumental fixation using transpedicular screws and rods, L4-L5 posterolateral fusion using autologous bone graft and demineralized bone matrix, microsurgical dissection on Nov 09, 2016 for L4-5 spondylolisthesis (Conchis Jose) Plan Plan Remarks cont pain control with oral analgesics, clinically improved, neuro stable clear to dc home today with [facility] when cleared medically maintain LSO when out of bed discussed activity restrictions and wound care with patient and over the phone (Conchis Jose) Attending Statement The exam, history, and the medical decision-making described in the above note were completed with the assistance of the mid-level provider. I reviewed and agree with the findings presented. I attest that I had a [id number] encounter with the patient on the same day, and personally performed and documented my assessment and findings in the medical record. (Musa Solis MD) Conchis Jose Nov 15, 2016 11:59 Musa Solis MD Nov 15, 2016 15:12
--- NOTE | 2016-11-15 12:06 | HHI.DCPOC ---
Discharge Care Plan Diagnosis: (1) S/P lumbar spinal fusion Goals to Promote Your Health * To prevent worsening of your condition and complications * To maintain your health at the optimal level Directions to Meet Your Goals Take your medications as prescribed Follow your dietary instruction Follow activity as directed Keep your appointments as scheduled Take your immunizations and boosters as scheduled If your symptoms worsen call your PCP, if no PCP go to Urgent Care Center or Emergency Room Smoking is Dangerous to Your Health. Avoid second hand smoke Call the 24-hour hour crisis hotline for domestic abuse at Conchis Jose Nov 15, 2016 12:06
--- NOTE | 2016-11-15 12:07 | HHI.FF ---
Face to Face Verification Diagnosis: (1) S/P lumbar spinal fusion Physical Therapy Order: Improve ambulation Home Health Nursing Order: Medical education Signs/symptoms of disease process Medication education-adverse effect Wound care and dressing changes Nursing assessment with vital signs I have seen patient Eyad Agee on 11/15/16. My clinical findings support the need for the requested home health care services because: Deconditioned w/ increased weakness High risk of falls I certify that my clinical findings support that this patient is homebound because: Post-op weakness Unsteady gait/balance Conchis Jose Nov 15, 2016 12:07
[2016-11-15] MEDS: oxyCODONE/ACETAMINOPHEN 5 MG/325 MG TAB PO PRN (12:49)
--- NOTE | 2016-11-15 14:08 | HHI.PR ---
Subjective Remarks Patient still on the oxygen 4 L, otherwise no chest pain fever or chills I discussed with neurosurgery [employer]IST, recommended pulmonary consult may be CT without contrast the patient continue hypoxic Objective Vitals Vital Signs Date Time Temp Pulse Resp B/P (MAP) Pulse Ox O2 Delivery O2 Flow Rate FiO2 11/15/16 14:02 18 11/15/16 12:00 97.4 73 20 139/63 (88) 91 11/15/16 08:00 98.3 77 20 123/56 (78) 94 11/15/16 07:45 95 Nasal Cannula 4.00 11/15/16 07:45 95 Nasal Cannula 4.00 11/15/16 07:00 95 Nasal Cannula 4.00 11/15/16 04:00 98.3 73 20 109/52 (71) 97 11/15/16 01:24 96 Nasal Cannula 4.00 11/15/16 00:00 98.6 73 20 118/58 (78) 92 11/14/16 21:57 Nasal Cannula 4.00 11/14/16 21:25 14 11/14/16 20:00 97.6 76 20 144/61 (88) 90 11/14/16 16:14 96.9 68 17 114/49 (70) 96 I/O 11/14/16 11/14/16 11/14/16 11/15/16 11/15/16 11/15/16 07:00 15:00 23:00 07:00 15:00 23:00 Intake Total 360 ml 140 ml Output Total 200 ml 950 ml Balance 360 ml -60 ml -950 ml Intake Oral 360 ml 140 ml Output Urine Total 200 ml 950 ml # Voids 1 1 1 Result Diagram: 11/14/16 1135 11/14/16 1135 Procedures s/p 11/09/16 L4-L5 laminectomy, interbody arthrodhesis using PEEK cage and autologous bone graft, L4-L5 instrumental fixation using transpedicular screws and rods, L4-L5 posterolateral fusion using autologous bone graft and demineralized bone matrix. Microsurgical dissection A/P Problem List: (1) Diabetes mellitus ICD Code: E11.9 - Type 2 diabetes mellitus without complications Status: Chronic (2) CAD (coronary artery disease) ICD Code: I25.10 - Atherosclerotic heart disease of [place] coronary artery without angina pectoris Status: Chronic (3) HTN (hypertension) ICD Code: I10 - Essential (primary) hypertension Status: Chronic (4) ARF (acute renal failure) ICD Code: N17.9 - Acute kidney failure, unspecified Status: Acute Assessment and Plan 76yo male with CAD, HTN, DM, HLD, aortic stenosis and anal cancer s/p elective L4-L5 laminectomy, interbody arthrodesis using PEEK cage and autologous bone graft, L4-L5 instrumental fixation using transpedicular screws and rods, L4-L5 posterolateral fusion using autologous bone graft and demineralized bone matrix. Microsurgical dissection. 11/13: Hypoxia, patient on 4 L O2. Worsening on exertion, Lasix iv has been given , will check d-dimer and lower extremity ultrasound and VQ scan if it came above normal limit need to rule out PE. 11/14: Patient feels okay despite still on 4 L nasal cannula O2. VQ scan showing low probability of PE. Bilateral lower extremity edema negative for DVT. CXR reviewed showing mild congestion without pulmonary edema and no consolidating infiltrate. Patient continued on 4L NC, sats 92%. Unable to wean, sats drop with increasing activity. Will consider PFT work up. Spoke to patient and about possibility of needing home O2 if unable to wean. All questions answered. Trending BNP, awaiting labs this am. Follow. 11/15: I saw the patient earlier this morning he was still on oxygen, 4 L, I discussed with Sherman the neurosurgeon RAFAT and recommended CT without contrast of the chest, PFT and possibly pulmonary consult, patient may need home oxygen. Addendum 4:30 PM: Received a call from the nurse stating patient was able to wean off oxygen and his been off since 2 PM, however that there is on rest, I ordered home oxygen walk test if he passed then patient can be discharged and follow up with pulmonology as an outpatient otherwise patient may need home O2 on follow up with laundry folder DDD lumbar spine s/p elective L4-L5 laminectomy, interbody arthrodesis using PEEK cage and autologous bone graft, L4-L5 instrumental fixation using transpedicular screws and rods, L4-L5 posterolateral fusion using autologous bone graft and demineralized bone matrix. Microsurgical dissection. - Management per primary team - LAYOUT ARTIST Dilaudid discontinued 2/2 confusion. Now on oral pain medications. Pain well controlled. - Continue with PT. - Encouraged bedside IS use hourly. CAD Aortic stenosis HTN - Continue on Norvasc and Metoprolol. BP well controlled. Monitor. Suspect ARF with stage 3 CKD - improving. Unknown baseline. Awaiting labs today. Follow. - BNP 533-->342. Repeat level pending this am. - Lisinopril on hold. Continue Lasix 40 mg IV daily. - patient follows Dr. Banks telegraph service rater as outpatient and told his kidneys are stable - strict I&Os please. - Renal US ordered and reviewed, unremarkable. - Protein creatinine ratio 1.52. random urine sodium 53, and urine creatinine 90. - No urine eosinophils seen. - avoid nephrotoxic agents Leukocytosis, resolved. - Afebrile. - CXR shows mild cardiomegaly with subtle positive fluid balance. - Urine culture pending. Follow. Anemia - likely postoperative anemia of acute blood loss - no e/o active bleeding - Hemoglobin 8.9. Awaiting am labs. DM - home medications Metformin and Glimepiride on hold - diabetic diet Hyperkalemia, resolved. Status post replacement. Hypocalcemia - protein corrected calcium 7.6 - Vitamin D level low. Continue weekly supplementation. DVT prophylaxis: SCDs GI prophylaxis: Protonix Discussed with patient, RN Mary Wolfe MD Nov 15, 2016 14:08
[2016-11-15] MEDS ORDERED: HYDR-3533 PO (14:22)
--- NOTE | 2016-11-15 17:32 | HHI.DS ---
Discharge Summary Admission Date Nov 09, 2016 at 11:04 Discharge Date: Nov 15, 2016 Admitting Diagnosis s/p lumbar fusion (1) Diabetes mellitus ICD Code: E11.9 - Type 2 diabetes mellitus without complications Status: Chronic (2) CAD (coronary artery disease) ICD Code: I25.10 - Atherosclerotic heart disease of [place] coronary artery without angina pectoris Status: Chronic (3) HTN (hypertension) ICD Code: I10 - Essential (primary) hypertension Status: Chronic (4) ARF (acute renal failure) ICD Code: N17.9 - Acute kidney failure, unspecified Status: Acute (5) S/P lumbar spinal fusion ICD Code: Z98.1 - Arthrodesis status Brief History Mr Agee is a 76 year-old male with history of a prior L4-5 laminectomy who presented with intractable mechanical back pain and citlaly evidence of lower extremity radiculopathy. He developed spondylolisthesis. The patient has failed maximum nonsurgical management including multiple modalities of conservative treatment as well as pain management interventions by an interventional pain specialist. A surgical decompression and arthrodesis were indicated as a last resort. CBC/BMP: 11/14/16 1135 11/14/16 1135 Significant Findings Laboratory Tests Test 11/12/16 22:20 11/13/16 02:23 11/13/16 10:31 11/13/16 12:05 Urine Protein 30 mg/dL (NEG-TRACE) 30 mg/dL (NEG-TRACE) Urine Bacteria RARE /hpf (NONE) Urine Occult Blood TRACE (NEG) Urine Mucus FEW /lpf (OCC) Blood Urea Nitrogen 32 MG/DL (7-18) Creatinine 1.60 MG/DL (0.60-1.30) Random Glucose 218 MG/DL (74-106) Sodium Level 135 MEQ/L (136-145) Estimat Glomerular Filtration Rate 42 ML/MIN (>89) B-Type Natriuretic Peptide 342 PG/ML (0-100) D-Dimer Quantitative (PE/DVT) 4.28 MG/L FEU (0.00-0.50) Test 11/14/16 11:35 Red Blood Count 2.81 MIL/MM3 (4.50-5.90) Hemoglobin 9.3 GM/DL (13.0-17.0) Hematocrit 27.5 % (39.0-51.0) Neutrophils (%) (Auto) 72.9 % (16.0-70.0) Monocytes (%) (Auto) 12.7 % (0.0-8.0) Monocytes # (Auto) 1.1 TH/MM3 (0-0.9) Blood Urea Nitrogen 37 MG/DL (7-18) Creatinine 1.42 MG/DL (0.60-1.30) Random Glucose 176 MG/DL (74-106) Calcium Level 8.3 MG/DL (8.5-10.1) Sodium Level 135 MEQ/L (136-145) Estimat Glomerular Filtration Rate 48 ML/MIN (>89) B-Type Natriuretic Peptide 366 PG/ML (0-100) Imaging Last Impressions Lung Scan-VQ Nuclear Medicine 11/13/16 0000 Signed Impressions: Service Date/Time: Sunday, November 13, 2016 18:48 - CONCLUSION: Low probability of pulmonary embolism Heterogeneous ventilation scan suggesting COPD. Kel Bernstein MD Lower Extremity Ultrasound 11/13/16 0000 Signed Impressions: Service Date/Time: Sunday, November 13, 2016 17:41 - CONCLUSION: No evidence of DVT. Kel Bernstein MD Chest X-Ray 11/13/16 0000 Signed Impressions: Service Date/Time: Sunday, November 13, 2016 18:35 - CONCLUSION: Mild vascular congestion without evidence of pulmonary edema. Cardiomegaly No consolidating infiltrate. Kel Bernstein MD Renal Ultrasound 11/11/16 0000 Signed Impressions: Service Date/Time: Friday, November 11, 2016 18:22 - CONCLUSION: Normal examination. Jorge Alberto Flores MD Lumbar Spine X-Ray 11/09/16 0000 Signed Impressions: Service Date/Time: Wednesday, November 09, 2016 15:25 - CONCLUSION: 1. Fusion L4-5. Jorge Alberto Flores MD Hospital Course Mr. Agee underwent a L4-L5 laminectomy, interbody arthrodesis using PEEK cage and autologous bone graft, L4-L5 instrumental fixation using transpedicular screws and rods, L4-L5 posterolateral fusion using autologous bone graft and demineralized bone matrix, microsurgical dissection on Nov 09, 2016 for L4-5 spondylolisthesis. 11/10: doing well, moderate surgical pain worse with movements. denies chest pain , difficulty breathing. 11/11: mildly confused but oriented x 3. desated when ambulating this am, improved when sitting now on oxygen. currently denies chest pain, difficulty breathing, leg pain. reports of persistent surgical back pain. dw , pt becomes confused with narcotics. 11/15: reports of residual pain to lateral thighs bilaterally, and c/o of incisional pain. No wound drainage, no fevers or chills. reports to be ambulating better. He underwent walking desaturation test without problems. He was cleared by medical physician for discharge. His pain controlled on oral medications. He was discharged home with home health care PT. Wound care and activity restrictions discussed. Pt Condition on Discharge: Stable Discharge Disposition: Disch w/ Home Health Serv Discharge Instructions DIET: Follow Instructions for: Heart Healthy Diet ACTIVITIES You can perform: Weight Bearing As Wil ADDITIONAL Activity Instructio: Avoid strenuous activities, heavy lifting, bending twisting, or pushing pulling or any other activities that will place stress on the spine. WEar back brace when out of bed. Avoid falls, use assistance as needed New Medications: Hydrocodone-Acetaminophen (Lortab) 5-325 Mg Tab 1 TAB PO Q6H PRN for PAIN, #62 TAB 0 Refills Continued Medications: Acetaminophen (Mapap Extra Strength) 500 Mg Tab 500 MG PO Q4-6H PRN for PAIN, TAB 0 Refills Alprazolam (Alprazolam) 0.5 Mg Tab 0.5 MG PO HS, #90 Amlodipine (Amlodipine) 10 Mg Tab 10 MG PO DAILY for Blood Pressure Management, #30 TAB 0 Refills B-Complex Vitamins (B Complex) 1 Cap 1 CAP PO DAILY for Nutritional Supplement, #30 CAP 0 Refills Furosemide (Furosemide) 20 Mg Tab 20 MG PO DAILY, #90 Glimepiride (Glimepiride) 2 Mg Tab 2 MG PO DAILY, #90 Lactobacillus Acidophilus (Probiotic) 10 Billion Cell Cap 1 CAP PO HS for Nutritional Supplement, #90 CAP 0 Refills Lisinopril (Lisinopril) 40 Mg Tab 40 MG PO BID, #60 Lovastatin (Lovastatin) 40 Mg Tab 40 MG PO DAILY, #90 Magnesium Oxide (Magnesium Oxide) 400 Mg Tab 400 MG PO HS for Nutritional Supplement, TAB 0 Refills Metformin (Metformin) 500 Mg Tab 500 MG PO BID, #60 Metoprolol Tartrate (Metoprolol Tartrate) 25 Mg Tab 12.5 MG PO DAILY, #90 Niacin (Niacin) 500 Mg Tab 500 MG PO HS for Cholesterol Management, #30 TAB 0 Refills [place]-3 Fatty Acids (Fish Oil 1000 mg) 300 Mg-1,000 Mg Cap 2 CAP PO BID Tamsulosin (Tamsulosin) 0.4 Mg Cap 0.4 MG PO BID, #180 Venlafaxine ER 24 HR (Venlafaxine ER 24 HR) 75 Mg Cap 75 MG PO DAILY, #90 Conchis Jose Nov 15, 2016 17:32
== END 2016-11-15 18:39 | disposition home health service (06) | DRG 460 ==
LOC: HSDI 11:04 → N05A 22:00
PROVIDERS: ADMIT Neurological Surgery; ATTEND Neurological Surgery
PROC: 0ST20ZZ Resection of Lumbar Vertebral Disc, Open Approach (ICD-10-PCS; 2016-11-09)
PROC: 01NB0ZZ Release Lumbar Nerve, Open Approach (ICD-10-PCS; 2016-11-09)
PROC: 0SG00A1 (ICD-10-PCS; principal; 2016-11-09 14:28)
DX: M43.16 Spondylolisthesis, lumbar region (principal); N17.9 Acute kidney failure, unspecified; E11.22 Type 2 diabetes mellitus with diabetic chronic kidney disease; E87.5 Hyperkalemia; E83.51 Hypocalcemia; D62 Acute posthemorrhagic anemia; I12.9 Hypertensive chronic kidney disease with stage 1 through stage 4 chronic kidney disease, or unspecified chronic kidney disease; M48.06 Spinal stenosis, lumbar region; I25.10 Atherosclerotic heart disease of native coronary artery without angina pectoris; R41.82 Altered mental status, unspecified; M51.16 Intervertebral disc disorders with radiculopathy, lumbar region; N18.3 Chronic kidney disease, stage 3 (moderate); R09.02 Hypoxemia; E78.5 Hyperlipidemia, unspecified; Z95.1 Presence of aortocoronary bypass graft; Z79.84 Long term (current) use of oral hypoglycemic drugs; Z85.048 Personal history of other malignant neoplasm of rectum, rectosigmoid junction, and anus; Z95.2 Presence of prosthetic heart valve; Z97.0 Presence of artificial eye; Z87.891 Personal history of nicotine dependence; Z85.46 Personal history of malignant neoplasm of prostate
CPT/HCPCS: 71010; 72100; 76000; 76775; 78582; 80048; 81001; 82306; 82570; 82805; 83880; 83970; 84155; 84156; 84300; 85025; 85379; 86850; 86900; 86901; 86920; 87086; 87205; 93005; 93970; 94150; 94620; 94762; A9540; A9567; C1713; C9113; J0131; J0690; J1170; J1580; J1644; J1815; J1940; J2250; J2370; J2405; J3010; J3370; J3480; J7030; J7050; J7120; L0200; L0484